=== PATIENT | female | born 1950 | race Caucasian/White ===

== ENCOUNTER 2024-11-02 05:44 | Outpatient (REF) | payer MEDICARE, SELFPAY ==
[2024-11-02 05:48] LABS: MANUAL DIFF FLAG NO
[2024-11-02 06:25] LABS: Basophils Percent Auto 0.3 % (0-2); Eosinophils Absolute Auto 0.1 X10*3/uL (0.0-0.4); Hematocrit 28.9 % (37.0-47.0); Hemoglobin 8.9 g/dl (12.0-16.0); Imm Gran Abs Auto 0.26 X10*3/uL (0.00-0.03); Imm Gran Pct Auto 2.5 % (0.0-0.4); Lymphocytes Absolute Auto 1.8 X10*3/uL (1.2-4.9); Lymphocytes Percent Auto 17.5 % (20-40); Mean Corpuscular HGB Conc 30.8 g/dl (31.0-35.0); Mean Corpuscular Hemoglobin 25.5 pg (27.0-33.0); Mean Corpuscular Volume 82.8 fL (80.0-98.0); Mean Platelet Volume 8.9 fL (9.4-12.3); Monocytes Absolute Auto 0.8 X10*3/uL (0.1-1.2); Monocytes Percent Auto 7.7 % (2-11); Neutrophils Absolute Auto 7.3 x10*3/uL (2.0-8.3); Platelet Count 360 X10*3/uL (160-400); Red Blood Count 3.49 X10*6/uL (4.20-5.50); Red Cell Distribution Width 20.3 % (11.0-16.0); White Blood Count 10.3 X10*3/uL (4.8-10.8)
[2024-11-02 06:33] LABS: Alanine Aminotransferase 24 U/L (0-31); Albumin Level 3.3 g/dL (3.5-5.0); Alkaline Phosphatase 80 U/L (39-117); Anion Gap 14 (12-20); Aspartate Amino Transferase 17 U/L (5-31); Bilirubin Total 0.4 mg/dL (0.0-1.0); Blood Urea Nitrogen 11 mg/dL (9-16); Carbon Dioxide 31 mmol/L (22-29); Chloride 101 mmol/L (96-108); Estimated Glomerular Filt Rate > 60; Glucose Random 99 mg/dL (60-115); Sodium 143 mmol/L (135-145); Total Protein 6.1 g/dL (6.5-8.0)
== END 2024-11-02 05:45 | disposition home or self-care (01) ==
LOC: HO.MMNH2L 05:44
PROVIDERS: Visit Provider Student in an Organized Health Care Education/Training Program
DX: J84.9 Interstitial pulmonary disease, unspecified (principal)
CPT/HCPCS: 36415; 80053; 85025

== ENCOUNTER 2024-11-09 05:46 | Outpatient (REF) | payer MEDICARE, SELFPAY ==
[2024-11-09 06:27] LABS: Hematocrit 29.2 % (37.0-47.0); Hemoglobin 8.6 g/dl (12.0-16.0); Mean Corpuscular HGB Conc 29.5 g/dl (31.0-35.0); Mean Corpuscular Hemoglobin 24.9 pg (27.0-33.0); Mean Corpuscular Volume 84.6 fL (80.0-98.0); Mean Platelet Volume 9.2 fL (9.4-12.3); NRBC Pct Auto 0.2 /100WBC (0.0-0.2); Platelet Count 493 X10*3/uL (160-400); Red Blood Count 3.45 X10*6/uL (4.20-5.50); Red Cell Distribution Width 20.3 % (11.0-16.0); White Blood Count 13.6 X10*3/uL (4.8-10.8)
[2024-11-09 06:36] LABS: Anion Gap 15 (12-20); Blood Urea Nitrogen 13 mg/dL (9-16); Calcium 8.9 mg/dL (8.4-10.2); Carbon Dioxide 33 mmol/L (22-29); Chloride 102 mmol/L (96-108); Estimated Glomerular Filt Rate > 60; Glucose Random 85 mg/dL (60-115); Potassium 3.2 mmol/L (3.3-5.1); Sodium 147 mmol/L (135-145)
[2024-11-09 08:10] LABS: Band Neutrophils Percent 1 % (3-5); Lymphocytes Absolute Manual 1.2 X10*3/uL (1.2-4.9); Lymphocytes Percent Manual 9 % (20-40); Metamyelocytes Absolute 0.4 X10*3/uL; Metamyelocytes Percent 3 %; Monocytes Absolute Manual 0.7 X10*3/uL (0.1-1.2); Monocytes Percent Manual 5 % (2-11); Myelocytes Absolute 0.3 X10*/uL; Myelocytes Percent 2 %; Neutrophils Percent Manual 80 % (45-73)
[2024-11-09 08:13] LABS: Ovalocytes 1+ (5-14) /OIF; Polychromasia 1+ (0-2) /OIF; RBC Morphology NOTED; Spherocytes 1+ (0-2) /OIF
[2024-11-09 08:14] LABS: Platelet Estimate INCREASED (NORMAL); Platelet Morphology Comment NORMAL
== END 2024-11-09 05:47 | disposition home or self-care (01) ==
LOC: HO.MMNH2L 05:46
PROVIDERS: Visit Provider Student in an Organized Health Care Education/Training Program
DX: J84.9 Interstitial pulmonary disease, unspecified (principal)
CPT/HCPCS: 36415; 80048; 85007; 85025; 85027

== ENCOUNTER 2024-11-12 05:42 | Outpatient (REF) | payer MEDICARE, SELFPAY ==
[2024-11-12 06:24] LABS: Potassium 2.8 mmol/L (3.3-5.1)
== END 2024-11-12 05:43 | disposition home or self-care (01) ==
LOC: HO.MMNH2L 05:42
PROVIDERS: Visit Provider Family Medicine
DX: G93.41 Metabolic encephalopathy (principal)
CPT/HCPCS: 36415; 84132

== ENCOUNTER 2024-11-13 06:02 | Outpatient (REF) | payer MEDICARE, SELFPAY ==
--- OUTSIDE RECORDS SUMMARY | 2024-11-13 06:07 | XMS_ITS | Continuity of Care Document ---
Author Organization [facility] Scarosso Cox [place], MARAL TJ Address [address] [place] [address] Care Team Providers Care Leacher Name Role Phone KENNETH GILMAR Primary Care Provider [phone] MARAL SPENCER 2ND FLOOR OTHER Assessment Encounter Date Assessment Date Assessment LastModified by Organization Details LastModified Time 11/11/2024 11/11/2024 Labs 11/02: Na 143- K 3.0-bun 11-cr 0.5-wbc 10.3-hgb 8.9-hct 28.9-plt 360 [email or web address] Not available 11/11/2024 11:34:03 Plan of Treatment Reminders Order Date Submit Date Provider Last Modified By Organization Details Last Modified Time Details Appointments None record ed. Lab None record ed. Referral None record ed. Procedures None record ed. Surgeries None record ed. Imaging None record ed. Medication Orders None record ed. Patient TargetsNo targets recorded. Patient InstructionsNo instructions recorded. Reason for Referral None Reported. Problems Name Problem SNOMED Code Status Onset Date Resolution Date Notes Provider Name and Address Organization Details Recorded Time Interstitial lung disease 508513141 Active 2024 Nabeel Munoz MD [address] , [address], [place], [address], [facility] 5 14:26:55 Chronic obstructive pulmonary disease 90552100 Active 2024 Nabeel Munoz MD [address] , [address], [place], [address], [facility] 5 14:27:01 Congestive heart failure 13617677 Active 2024 Nabeel Munoz MD [address] , [address], [place], [address], [facility] 5 14:27:11 Atrial fibrillation 57301227 Active 2024 Nabeel Munoz MD [address], [address], [place], [address], [facility] 5 14:27:33 Retention of urine 652207213 Active 2024 Nabeel Munoz MD [address], [address], [place], [address], [facility] 5 14:27:39 Essential hypertension 11990693 Active 2024 Nabeel Munoz MD [address], [address], [place], [address], [facility] 5 14:31:17 Mixed anxiety and depressive disorder 138825348 Active 2024 YANI BETANCUR [address], [address], [place], [address], [facility] 5 06:37:54 Problem Notes None recorded. Medical Equipment None Reported. Allergies Allergen ID Allergen Name Allergen Category Reaction Reaction Severity Criticality Documentation Date Start Date Code Code System Note Provider Name and Address Organization Details Recorded Time 60529 ampicilli n medicatio n Not available Not available Not available 11/03/2024 733 RxNorm Not Available Not Available Not Available 68833 budesonid e medicatio n Not available Not available Not available 11/03/2024 00415 RxNorm Not Available Not Available Not Available 39025 duloxetin e medicatio n Not available Not available Not available 11/03/2024 03132 RxNorm Not Available Not Available Not Available 08421 escitalop jarrod Not available Not available Not available Not available 11/03/2024 24460 8 RxNorm Not Available Not Available Not Available 46990 Levaquin medicatio n Not available Not available Not available 11/03/2024 73593 2 RxNorm Not Available Not Available Not Available 61900 Lovenox medicatio n Not available Not available Not available 11/03/2024 48945 6 RxNorm Not Available Not Available Not Available 80412 Substance with sulfonami de structure and antibacte rial mechanism of action (substanc e) medicatio n Not available Not available Not available 11/03/2024 95553 8003 SNOMED Not Available Not Available Not Available Medications Not known to be on any medication Vitals Date Recorded Body weight Heart rate Respiratory rate Body temperature Oxygen saturation Oxygen saturation in Arterial blood by Pulse oximetry Systolic blood pressure Diastolic blood pressure Provider Name and Address Organization Details Last Updated DateTime 5 51748.6 g 76 /min 18 /min 97.8 [degF] 94 % 94 % 121 mm[Hg] 68 mm[Hg] DANIELA BUNCH CNP [address] [facility], [address], [place], [address], [facility] 5 11:33:24 Social History Question Answer Notes LastModified by Organizat ion Details LastModified Time Tobacco Smoking Status Former Smoker quit around 1989 Nabeel Munoz MD [address] [facility], [address], [place], [address], [facility] 11/03/2024 14:39:28 Do You Have An Advance Directive? Yes Information not available 11/03/2024 What Is Your Level Of Alcohol Consumption? Occasional Information not available 11/03/2024 What Is Your Code Status? DNR/DNI Information not available 11/03/2024 Sex: Unknown Functional Status None recorded. Mental Status None recorded. Family History Nothing Reported Notes:N/C Medical History No medical history recorded. Gynecological HistoryNo gynecological history recorded. Obstetrics History GPAL:G 0 P 0 0 0 0 Immunizations Vaccine Type Date Status Note Provider Nam e and Address Organization Details Recorded Time Respiratory syncytial virus (RSV) MAB, unspecified 3 completed Mehrdad Giraldo [facility], [facility] 11/04/2024 09:33:24 Td(adult) unspecified formulation 1 completed Mehrdad zimmer [facility] 11/04/2024 09:33:36 Td(adult) unspecified formulation 5 completed Mehrdad Giraldo [facility], [facility] 11/04/2024 09:33:41 Td(adult) unspecified formulation 9 completed Mehrdad zimmer [facility] 11/04/2024 09:33:46 Pneumococcal conjugate PCV 13 5 completed Mehrdad Vinny-Baires null, [facility] 11/04/2024 09:33:59 pneumococcal polysaccharide PPV23 7 completed Mehrdad Vinny-Baires null, [facility] 11/04/2024 09:34:17 influenza, unspecified formulation 1 completed Mehrdad Vinny-Baires null, [facility] 11/04/2024 09:34:31 influenza, unspecified formulation 2 completed Mehrdad Vinny-Baires null, [facility] 11/04/2024 09:34:35 influenza, unspecified formulation 3 completed Mehrdad Nitos-Baires null, [facility] 11/04/2024 09:34:39 influenza, unspecified formulation 5 completed Mehrdad Nitos-Baires null, [facility] 11/04/2024 09:34:45 SARS-COV-2 (COVID-19) vaccine, UNSPECIFIED 1 completed Mehrdad Vinny-Baires null, [facility] 11/04/2024 09:34:56 SARS-COV-2 (COVID-19) vaccine, UNSPECIFIED 1 completed Mehrdad Nitomarita-Baires null, [facility] 11/04/2024 09:35:00 SARS-COV-2 (COVID-19) vaccine, UNSPECIFIED 1 [facility] 11/04/2024 09:35:05 SARS-COV-2 (COVID-19) vaccine, UNSPECIFIED 2 completed Mehrdad Vinny-Baires null, [facility] 11/04/2024 09:35:09 SARS-COV-2 (COVID-19) vaccine, UNSPECIFIED 2 completed Mehrdad Nitos-Baires null, [facility] 11/04/2024 09:35:14 SARS-COV-2 (COVID-19) vaccine, UNSPECIFIED 3 completed Mehrdad Vinny-Baires null, [facility] 11/04/2024 09:35:19 SARS-COV-2 (COVID-19) vaccine, UNSPECIFIED 3 completed Mehrdad Giraldo [facility], [facility] 11/04/2024 09:35:24 zoster, unspecified formulation 3 completed Mehrdad Giraldo [facility], [facility] 11/04/2024 09:35:38 zoster, unspecified formulation 9 completed Mehrdad Giraldo null, [facility] 11/04/2024 09:35:42 zoster, unspecified formulation 9 completed Mehrdad Giraldo [facility], [facility] 11/04/2024 09:35:48 Past Encounters Encounter ID Performer Location Encounter Start Date Encounter Closed Date Diagnosis/Indication Diagnosis SNOMED-CT Code Diagnosis ICD10 Code Diagnosis Note [id number] MD MARAL Conroy [address] [place] [address] PERCY FULLER [address] 11/03/2024 14:18:47 11/05/2024 11:41:09 Stercoral colitis 534763147 K52.89 improved with enemanow on bowel protocolmo nitor for effect Acute infe ctive cystitis 840367827 N30.00 UTI treated with course of cefepimemo nitor for recurrent infection Acute hyperkalemia 03477 00 E87.5 KCl 20 meq qdayrepeat bmpmonitor lytes Asthenia 15918933 R53.1 PT OT Eval and treatmonit or fall risk and need for increased support in community Interstiti al lung disease 622789275 J84.09 see above Chronic ob structive pulmonary disease 80122329 J44.1 recent hospitaliz ation for exacerbati oncontinue prednisone tapermonit or respirator y status and need to extendO2 at baseline Congestive heart failure 66354211 I50.23 treated with IV lasix in hospitalno w on lasix 20 mg qdmonitor respirator y and fluid status Atrial fibrillation 4943 6004 I48.0 eliquis 5 mg bidmonitor for rate controlon diltiazem Retention of urine 30901 4002 R33.8 [facility] Essential hypertension 53352412 I10 diltiazem 300 mg qdmonitor bp and need to titrate Primary insomnia 3706450 F51.01 melatonin 3 mg qhsmonitor for effect [id number] ERICA MCMILLAN, HEAD P[employer]ER TESTER [address] [address] 11/08/2024 10:51:09 11/12/2024 15:47:12 Stercoral colitis 102192771 K52.89 stableimpr farrukh with enemanow on bowel protocolmo nitor for effect Acute infe ctive cystitis 482838715 N30.00 stableUTI treated with course of cefepimemo nitor for recurrent infection Acute hyperkalemia 59217 00 E87.5 KCl 20 meq qdayrepeat bmpmonitor lytes Asthenia 74331756 R53.1 continue PT/OTmonit or fall risk and need for increased support in community Chronic ob structive pulmonary disease 14890397 J44.1 stablecont spiriva 18 mcg qdcont duoneb tx prncont prednisone taperO2 at baseline Congestive heart failure 35936111 I50.23 euvolemicc ont lasix 20 mg dailykcl 20 meq qdmonitor respirator y and fluid status Atrial fibrillation 4943 6004 I48.0 stablecont eliquis 5 mg bidmonitor for rate controlon diltiazem 300 mg Essential hypertension 34033944 I10 stabledilt iazem 300 mg qdmonitor bp and need to titrate Primary insomnia 2817246 F51.01 melatonin 3 mg qhsmonitor for effect Interstiti al lung disease 786925913 J84.09 cont atovaquone until 4/6cont mycophenol ate Mixed anxi ety and depressive disorder 814810238 F41.8 cont mirtazapin e, clonazepam , seroquelmo nitor mood [id number] DANIELA BUNCH, SHERYL [address] [address] 11/11/2024 10:09:50 11/12/2024 16:25:09 Stercoral colitis 687127023 K52.89 stableimpr farrukh with enemanow on bowel protocolmo nitor for effect Acute infe ctive cystitis 576326805 N30.00 stableUTI treated with course of cefepimemo nitor for recurrent infection Acute hyperkalemia 21728 00 E87.5 KCl 20 meq qdayrepeat bmpmonitor lytes Asthenia 23136143 R53.1 continue PT/OTmonit or fall risk and need for increased support in community Chronic ob structive pulmonary disease 04482685 J44.1 stablecont spiriva 18 mcg qdcont duoneb tx prncont prednisone taperO2 at baseline Congestive heart failure 84590835 I50.23 euvolemicc ont lasix 20 mg dailykcl 20 meq qdmonitor respirator y and fluid status Atrial fibrillation 4943 6004 I48.0 stablecont eliquis 5 mg bidmonitor for rate controlon diltiazem 300 mg Essential hypertension 06523618 I10 stabledilt iazem 300 mg qdmonitor bp and need to titrate Primary insomnia 7885646 F51.01 melatonin 3 mg qhsmonitor for effect Interstiti al lung disease 753848758 J84.09 cont atovaquone until 4/6cont mycophenol ate Mixed anxi ety and depressive disorder 163636445 F41.8 cont mirtazapin e, clonazepam , seroquelmo nitor mood Migraine without aura 56 971140 G43.009 Stable, and also is on prednisone therapy as above.Pt does not want medication for migraine at this time.Advis ed patient to try PRN tylenol.Wi ll continue monitor. Health Concerns Section Related Observation LastModified by Organization Detai ls LastModified Time None Recorded Concern Status LastModified by Organization Details LastModified Time None Recorded Payers Encounter Date Sequence Insurance Name Policy Number Policy Nair Covered Member ID Nair Member ID Guarantor Name 11/11/2024 2 [place] [id number] Mellissa Rubio [id number] Mellissa Rubio 11/11/2024 1 [place] [employer] Mellissa Rubio [id number] Melilssa Rubio Notes Date Note Type Note Provider Name and Address Organization Details Recorded Time 11/11/2024 text/html Patient is a 74 yo female admit from hospital after presenting with concern for mental status change and seizures after several recent hospitalizations for ILD and CHF exacerbations. On this admission dx with UTI and stercoral colitis. UTI treated with course of cefepime. Passed voiding trial in hospital. Noted recurrent CHF exacerbation improved with IV lasixOf note tsh noted mildly elevated. Constipation improved with enema and bowel protocol. For ILD exacerbation continue steroid taper, the end date will be 11/29/24. PMH significant for ILD, copd O2 dependent, chf, a fib on eliquis, urinary retentionadmit to facility for continued care and therapy. Upon assessment today, she is stable with baseline SOB oxygen dependent, VSS, denies any othe sx. Nursing requested for evaluation of headache. Pt reports she has chronic migraine, probably twice a week, it is manageable, does not want to use medication for that. Pt currently is on prednisone therapy, and no migraine reported today. PMH significant forILDcopd O2 dependentchfa fib on eliquisurinary retention DANIELA BUNCH, REBAR BENDER [address] [facility], [address], [place], [address], [facility] 11/11/2024 12:06:53 OBGyn Episode No OBEpisode recorded.
--- OUTSIDE RECORDS SUMMARY | 2024-11-13 06:07 | XMS_ITS | Continuity of Care Document ---
Author Organization [facility], MARAL TJ Address [address] [place] [address] Care Team Providers Care Netbackup Engineer Name Role Phone KENNETH GILMAR Primary Care Provider MARAL SPENCER 2ND FLOOR OTHER Assessment Encounter Date Assessment Date Assessment LastModified by Organization Details LastModified Time 11/08/2024 11/08/2024 Labs 11/02: Na 143- K 3.0-bun 11-cr 0.5-wbc 10.3-hgb 8.9-hct 28.9-plt 360 [id number] Not available 11/09/2024 06:45:39 Plan of Treatment Reminders Order Date Submit [...] Organization Details Recorded Time Interstitial lung disease 237721740 Active 2024 Nabeel Munoz MD [address] , [address], [place], [address], [facility] 5 14:26:55 Chronic obstructive pulmonary disease 50850104 Active 2024 Nabeel Munoz MD [address], [address], [place], [address], [facility] 5 14:27:01 Congestive heart failure 76199708 Active 2024 Nabeel Munoz MD [address] , [address], [place], [address], [facility] 5 14:27:11 Atrial fibrillation 28397120 Active 2024 Nabeel Munoz MD [address], [address], [place], [address], [facility] 5 14:27:33 Retention of urine 148866452 Active 2024 Nabeel Munoz MD [address], [address], [place], [address], [facility] 5 14:27:39 Essential hypertension 79451300 Active 2024 Nabeel Munoz MD [address], [address], [place], [address], [facility] 5 14:31:17 Mixed anxiety and depressive disorder 529996749 Active 2024 YANI BETANCUR [address], [address], [place], [address], [facility] 5 06:37:54 Problem Notes None recorded. Medical Equipment None Reported. Allergies Allergen ID Allergen Name Allergen Category Reaction Reaction Severity Criticality Documentation Date Start Date Code Code System Note Provider Name and Address Organization Details Recorded Time 23704 ampicilli n medicatio n Not available Not available Not available 11/03/2024 733 RxNorm Not Available Not Available Not Available 74504 budesonid e medicatio n Not available Not available Not available 11/03/2024 82705 RxNorm Not Available Not Available Not Available 40081 duloxetin e medicatio n Not available Not available Not available 11/03/2024 16587 RxNorm Not Available Not Available Not Available 68092 escitalop jarrod Not available Not available Not available Not available 11/03/2024 28858 8 RxNorm Not Available Not Available Not Available 11699 Levaquin medicatio n Not available Not available Not available 11/03/2024 77347 2 RxNorm Not Available Not Available Not Available 16239 Lovenox medicatio n Not available Not available Not available 11/03/2024 14995 6 RxNorm Not Available Not Available Not Available 61612 Substance with sulfonami de structure and antibacte rial mechanism of action (substanc e) medicatio n Not available Not available Not available 11/03/2024 13740 8003 SNOMED Not Available Not Available Not Available Medications Not known to be on any medication Vitals Date Recorded Heart rate Respiratory rate Body temperature Oxygen saturation Oxygen saturation in Arterial blood by Pulse oximetry Systolic blood pressure Diastolic blood pressure Provider Name and Address Organization Details Last Updated DateTime 5 77 /min 20 /min 97.9 [degF] 91 % 91 % 98 mm[Hg] 60 mm[Hg] YANI BETANCUR [address] [facility], [address], [place], [address], [facility] 5 00:54:03 Social History Question Answer Notes LastModified by Organizat ion Details LastModified Time Tobacco Smoking Status Former Smoker quit around 1989 Nabeel Munoz MD [address] [facility], [address], [place], [address], [facility] 11/03/2024 14:39:28 Do You Have An Advance Directive? Yes Information not available 11/03/2024 What Is Your Level Of Alcohol Consumption? Occasional Information not available 11/03/2024 What Is Your Code Status? DNR/DNI intz1 Information not available 11/03/2024 Sex: Unknown Functional [...] (RSV) MAB, unspecified 3 completed Mehrdad Giraldo [facility], [facility] 11/04/2024 09:33:24 Td(adult) unspecified formulation 1 completed Mehrdad Giraldo [facility] 11/04/2024 09:33:36 Td(adult) unspecified formulation 5 completed Mehrdad Giraldo [facility], [facility] 11/04/2024 09:33:41 Td(adult) unspecified formulation 9 completed Mehrdad zimmer, [facility] 11/04/2024 09:33:46 Pneumococcal conjugate PCV 13 5 completed Mehrdad Jacks-Baires null, [facility] 11/04/2024 09:33:59 pneumococcal polysaccharide PPV23 7 completed Mehrdad Jacks-Baires null, [facility] 11/04/2024 09:34:17 influenza, unspecified formulation 1 completed Mehrdad Jacks-Baires null, [facility] 11/04/2024 09:34:31 influenza, unspecified formulation 2 completed Mehrdad Jacks-Baires null, [facility] 11/04/2024 09:34:35 influenza, unspecified formulation 3 completed Mehrdad Jacks-Baires null, [facility] 11/04/2024 09:34:39 influenza, unspecified formulation 5 completed Mehrdad Jacks-Baires null, [facility] 11/04/2024 09:34:45 SARS-COV-2 (COVID-19) vaccine, UNSPECIFIED 1 completed Mehrdad Jacks-Baires null, [facility] 11/04/2024 09:34:56 SARS-COV-2 (COVID-19) vaccine, UNSPECIFIED 1 completed Mehrdad Jacks-Baires null, [facility] 11/04/2024 09:35:00 SARS-COV-2 (COVID-19) vaccine, UNSPECIFIED 1 completed Mehrdad Jacks-Baires null, [facility] 11/04/2024 09:35:05 SARS-COV-2 (COVID-19) vaccine, UNSPECIFIED 2 completed Mehrdad Jacks-Baires null, [facility] 11/04/2024 09:35:09 SARS-COV-2 (COVID-19) vaccine, UNSPECIFIED 2 completed Mehrdad Jacks-Baires null, [facility] 11/04/2024 09:35:14 SARS-COV-2 (COVID-19) vaccine, UNSPECIFIED 3 completed Mehrdad Jacks-Baires null, [facility] 11/04/2024 09:35:19 SARS-COV-2 (COVID-19) vaccine, UNSPECIFIED 3 completed Mehrdad Jacks-Baires null, [facility] 11/04/2024 09:35:24 zoster, unspecified formulation 3 completed Mehrdad Giraldo null, [facility] 11/04/2024 09:35:38 zoster, unspecified formulation 9 completed Mehrdad Giraldo null, [facility] 11/04/2024 09:35:42 zoster, unspecified formulation 9 completed Mehrdad Giraldo [facility], [facility] 11/04/2024 09:35:48 Past Encounters Encounter ID Performer Location Encounter Start Date Encounter Closed Date Diagnosis/Indication Diagnosis SNOMED-CT Code Diagnosis ICD10 Code Diagnosis Note [id number] MD MARAL Conroy [address] [place] [address] [place] [phone] 11/03/2024 14:18:47 11/05/2024 11:41:09 Stercoral colitis 121529437 K52.89 improved with enemanow on bowel protocolmo nitor for effect Acute infe ctive cystitis 037449669 N30.00 UTI treated with course of cefepimemo nitor for recurrent infection Acute hyperkalemia 54906 00 E87.5 KCl 20 meq qdayrepeat bmpmonitor lytes Asthenia 15526793 R53.1 PT OT Eval and treatmonit or fall risk and need for increased support in community Interstiti al lung disease 811174840 J84.09 see above Chronic ob structive pulmonary disease 67841191 J44.1 recent hospitaliz ation for exacerbati oncontinue prednisone tapermonit or respirator y status and need to extendO2 at baseline Congestive heart failure 19364954 I50.23 treated with IV lasix in hospitalno w on lasix 20 mg qdmonitor respirator y and fluid status Atrial fibrillation 4943 6004 I48.0 eliquis 5 mg bidmonitor for rate controlon diltiazem Retention of urine 12514 4002 R33.8 [facility] Essential hypertension 45901462 I10 diltiazem 300 mg qdmonitor bp and need to titrate Primary insomnia 9773976 F51.01 melatonin 3 mg qhsmonitor for effect [id number] YANI BETANCUR [address] [facility] [place] [id number] 11/08/2024 10:51:09 11/12/2024 15:47:12 Stercoral colitis 321869339 K52.89 stableimpr farrukh with enemanow on bowel protocolmo nitor for effect Acute infe ctive cystitis 194755715 N30.00 stableUTI treated with course of cefepimemo nitor for recurrent infection Acute hyperkalemia 42789 00 E87.5 KCl 20 meq qdayrepeat bmpmonitor lytes Asthenia 61803644 R53.1 continue PT/OTmonit or fall risk and need for increased support in community Chronic ob structive pulmonary disease 06764740 J44.1 stablecont spiriva 18 mcg qdcont duoneb tx prncont prednisone taperO2 at baseline Congestive heart failure 17955194 I50.23 euvolemicc ont lasix 20 mg dailykcl 20 meq qdmonitor respirator y and fluid status Atrial fibrillation 4943 6004 I48.0 stablecont eliquis 5 mg bidmonitor for rate controlon diltiazem 300 mg Essential hypertension 58971310 I10 stabledilt iazem 300 mg qdmonitor bp and need to titrate Primary insomnia 4478901 F51.01 melatonin 3 mg qhsmonitor for effect Interstiti al lung disease 883215852 J84.09 cont atovaquone until 4/6cont mycophenol ate Mixed anxi ety and depressive disorder 346310336 F41.8 cont mirtazapin e, clonazepam , seroquelmo nitor mood Health Concerns Section Related Observation LastModified by Organization Detai ls LastModified Time None Recorded Concern Status LastModified by Organization Details LastModified Time None Recorded Payers Encounter Date Sequence Insurance Name Policy Number Policy Nair Covered Member ID Nair Member ID Guarantor Name 11/08/2024 2 [place] [id number] Mellissa Rubio [id number] Mellissa Rubio 11/08/2024 1 [place] [employer] Mellissa Rubio [id number] Mellissa Rubio Notes Date Note Type Note Provider Name and Address Organization Details Recorded Time 11/08/2024 text/html Patient is a 74 yo female seen for acute rounding visit.She is here for rehab after recent acute care stay for ILD and CHF exacerbation. stable with baseline SOB oxygen dependent, noted with congested cough for a few days, denies any othe sx. PMH significant forILDcopd O2 dependentchfa fib on eliquisurinary retention YANI BETANCUR [address] [facility], [address], [place], [address], [facility] 11/09/2024 06:56:22 OBGyn Episode No OBEpisode recorded.
--- OUTSIDE RECORDS SUMMARY | 2024-11-13 06:07 | XMS_ITS | Clinical Summary ---
Author Organization [facility], Address [address] [place] [address] [place] [address] Phone Care Team Providers Care Tool Engineer Name Role Phone Unavailable Primary Care Provider Unavailabl e Social History Tobacco Use Types Packs/Day Years Used Date Smoking Tobacco: Never Assessed Comments Unknown Sex and Gender Information Value Date Recorded Sex Assigned at Not on file Legal Sex Female 8:41 AM EDT Gender Identity Not on file Sexual Orientation Not on file Plan of Treatment Health Maintenance Due Date Last Done Comments Influenza Vaccine (#1) 2024 9, 03/25/2019, 05/08/2018, Additional history exists Pneumococcal Vaccine: 65+ Years Completed 09/05/2016, 03/03/2015, 12/14/2011, Additional history exists Hepatitis B Vaccine Aged Out No longe r eligible based on patient's age to complete this topic Insurance MEDICARE [facility]
--- OUTSIDE RECORDS SUMMARY | 2024-11-13 06:07 | XMS_ITS | Clinical Summary ---
Author Organization [address] Address [address] [place] [address] Care Team Providers Care Calibration Tester Name Role Phone Suhas Merchant MD Primary Care Provider [phone] Allergies Active Allergy Reactions Criticality Noted Date Comments Ciprofloxacin Intolerance 05/13/2020 Duloxetine Mental Status Change 06/12/2017 Levofloxacin Intolerance 05/13/2020 Penicillins Angioedema 05/13/2020 Sulfamethoxazole Angioedema 05/13/2020 Medications albuterol (PROVENTIL, VENTOLIN) 2.5 mg /3 mL (0.083 %) nebulizer solutionIndicat ions:acute asthma attack,bronchos pasm prevention Take 3 mLs by nebulization every 6 (six) hours as needed for shortness of breath. Active ALPRAZolam (XANAX) 1 mg tabletIndicatio ns:anxiety Take 1 mg by mouth 2 (two) times daily as needed for anxiety. .5 tab Active apixaban (ELIQUIS) 5 mg tablet Take 1 tablet by mouth 2 (two) times daily. Active dilTIAZem CD (CARDIZEM CD) 360 mg 24 hr capsule Take 360 mg by mouth daily. Active FLUoxetine 20 mg tablet Take 20 mg by mouth daily. Active fluticasone furoate-vilante roL (BREO ELLIPTA) 200-25 mcg/dose blister powder for inhalation Inhale 1 puff into the lungs daily. Active furosemide (LASIX) 40 mg tablet Take 40 mg by mouth 2 (two) times daily. Take 1 tab in am, .5 tab in pm Active gabapentin (NEURONTIN) 300 mg capsuleIndicati ons:neuropathic pain Take 300 mg by mouth at bedtime. 3 tabs Active latanoprost (XALATAN) 0.005 % ophthalmic solution Place 1 drop into both eyes nightly. Active lipase-protease -amylase (CREON-6) 6,000-19,000 -30,000 unit per delayed release capsule Take by mouth 3 (three) times daily with meals. Active losartan (COZAAR) 100 mg tablet Take 100 mg by mouth daily. Active magnesium oxide (MAG-OX) 400 mg (241.3 mg magnesium) tablet Take 1 tablet by mouth daily. Active montelukast (SINGULAIR) 10 mg tablet Take 10 mg by mouth nightly. Active omeprazole (PRILOSEC) 20 mg capsule Take 20 mg by mouth daily. Active oxyCODONE (OXY-IR) 5 mg capsule Take 5 mg by mouth every 6 (six) hours as needed. .5 tab Active potassium chloride SA (K-DUR,KLOR-CON M) 20 MEQ 24 hr tablet Take 20 mEq by mouth daily. Swallow whole; do not break, crush, or chew. Active pravastatin (PRAVACHOL) 40 mg tablet Take 40 mg by mouth daily. Active zolpidem CR (AMBIEN CR) 12.5 mg 24 hr tablet Take 12.5 mg by mouth nightly as needed for sleep. Active Active Problems No known active problems Immunizations Name Administration Dates Next Due Influenza, quad, adjuvanted, 0.5mL, preservative free 04/29/2020 Family History Medical History Relation Name Comments Heart attack Father Heart disease Mother Rheumatic fever Mother Relation Name Status Comments Father Mother Social History Tobacco Use Types Packs/Day Years Used Date Smoking Tobacco: Former Cigarettes Q uit: 1992 Smokeless Tobacco: Never Alcohol Use Standard Drinks/Week Comments Yes 5 (1 standard drink = 0.6 oz pur e alcohol) Comments No Sex and Gender Information Value Date Recorded Sex Assigned at Not on file Legal Sex Female 11:40 AM EDT Gender Identity Not on file Sexual Orientation Not on file Last Filed Vital Signs Vital Sign Reading Time Taken Comments Blood Pressure 121/55 05/17/2020 6:45 PM EDT Pulse 85 05/17/2020 6:45 PM EDT Temperature 37 ??C (98.6 ??F) 05/17/2020 6:32 PM EDT Respiratory Rate 15 05/17/2020 6:45 PM EDT Oxygen Saturation 95% 05/17/2020 6:45 PM EDT Inhaled Oxygen Concentration - - Weight 75.4 kg (166 lb 3.6 oz) 05/17/2020 2:27 P M EDT Height 154.9 cm (5' 1 ) 05/13/2020 10:48 AM EDT Body Mass Index 31.41 05/13/2020 10:48 AM EDT Plan of Treatment Health Maintenance Due Date Last Done Comments HIV screening 1961 Hepatitis C screening 1966 Tetanus adult (Td q 10,TDAP once) 1968 Lipid disorder screening 1988 Colon cancer screening, Colonoscopy 1993 Diabetes screening 1993 Shingles vaccine (Shingrix) (1 of 2 - Shingrix (RZV) 2 Dose Standard Series) 1998 Osteoporosis screening (bone density) 2013 Pneumococcal Vaccine (50+ ye ars) (1 of 1 - PCV) 2013 RSV Immunization (1 - 1-dose 75+ series) 2023 Influenza vaccine 03/12/2024 04/29/2020 Covid-19 vaccine series ( - 2023- season) 2024 Breast cancer screening Discontinued Cervical cancer screening Discontinued Meningococcal Vaccine Aged Out No justin kanwal eligible based on patient's age to complete this topic Insurance MEDICARE [facility] MEDICARE [facility] MEDICARE BCBS Care Teams Calibration Tester Relationship Specialty Start Date End Date Suhas Merchant MD PCP - General 05/06/20
--- OUTSIDE RECORDS SUMMARY | 2024-11-13 06:07 | XMS_ITS | Clinical Summary ---
Author Organization [employer] Address [address] [place] [address] 7 [place] [address] Care Team Providers Care Ship Mate Name Role Phone Gabriella Elizabeth MD Unavailable [phone] Allergies Active Allergy Reactions Criticality Noted Date Comments Duloxetine Hcl Unknown 09/12/2022 Enoxaparin 06/12/2017 Levofloxacin Unknown 09/12/2022 Penicillins Angioedema 06/12/2017 Sulfa Antibiotics 06/12/2017 Medications BIOTIN EXTRA STRENGTH PO Biotin Extra Strength Active Multiple Vitamin (Multi Vitamin) tablet 1 tablet in the morning. Active cycloSPORINE (Restasis) 0.05 % ophthalmic emulsion 1 drop in the morning and 1 drop in the evening. Active apixaban (Eliquis) 5 MG tablet as directed Orally Active losartan (Cozaar) 100 MG tablet 1 tablet in the morning. Active omeprazole (PriLOSEC) [address] capsule daily. Active pravastatin (Pravachol) 40 MG tablet 1 tablet in the morning. Active amitriptyline (Elavil) 10 MG tablet 1 tablet at bedtime. Active FLUoxetine (PROzac) 20 MG capsule 1 capsule in the morning. Active Flaxseed Oil oil Flaxseed Oil Active gabapentin (Neurontin) 300 MG capsule 1 capsule in the morning. Active zolpidem (Ambien) 10 MG tablet 1 tablet at bedtime. Active montelukast (Singulair) 10 MG tablet 1 tablet in the morning. Active latanoprost (Xalatan) 0.005 % ophthalmic solution Administer 1 drop into both eyes at bedtime. 2 Active diazePAM (Valium) 5 MG tablet 3 Active diazePAM (Valium) 2 MG tablet 3 Active Trelegy Ellipta 200-62.5-25 MCG/ACT aerosol powder 2 Active SUMAtriptan (Imitrex) 25 MG tablet 2 Active predniSONE (Deltasone) 10 MG tablet TAKE 4 TABLETS BY MOUTH DAILY X3DAYS 3 TABLETS DAILY X5DAYS 2 TABLETS DAILY X5DAYS 1 TABLET DAILY X3DAYS 3 Active oxyCODONE (Oxy-IR) 5 MG immediate release capsule Take 5 mg by mouth every 6 (six) hours if needed. Active albuterol 108 (90 Base) MCG/ACT inhaler Inhale. 1 Active furosemide (Lasix) 40 MG tablet 2 Active KLOR-CON 20 MEQ ER tablet 2 Active Active Problems Problem Noted Date Diagnosed Date Primary open angle glaucoma (POAG) of both eyes, mild stage 09/12/2022 Keratitis sicca, bilateral 09/12/2022 Social History Tobacco Use Types Packs/Day Years Used Date Smoking Tobacco: Former Cigarettes Tobacco Cessation:Counseling Given: Not Answered Comments Unknown Sex and Gender Information Value Date Recorded Sex Assigned at Female 09/13/2022 4:01 PM EST Legal Sex Female 8:36 PM EDT Gender Identity Female 09/13/2022 4:01 PM EST Sexual Orientation Choose not to disclose 2022 4:01 PM EST Last Filed Vital Signs Vital Sign Reading Time Taken Comments Blood Pressure 108/62 09/27/2021 10:00 AM EST Pulse - - Temperature - - Respiratory Rate - - Oxygen Saturation - - Inhaled Oxygen Concentration - - Weight - - Height - - Body Mass Index - - Plan of Treatment Health Maintenance Due Date Last Done Comments Depression Screening 1948 Lipid Panel 1948 SDOH Screening 1948 Alcohol/Substance Use Screening 1960 Tobacco Screening 1960 Hepatitis C Screening 1966 RSV Patients and Patients Aged 60 years or older (1 - 1-dose 75+ series) 2023 COVID-19 Vaccine ( season) 2024 06/07/2023, 03/30/2023, 06/28/2022, Additional history exists Influenza Vaccine (#1) 2024 3, 06/13/2022, 06/13/2022, Additional history exists DTaP/Tdap/Td Vaccines (3 - Td or Tdap) 02/27/2029 02/27/2019, 02/24/2015, 02/27/2011, Additional history exists Pneumococcal Vaccine: 50+ Years Completed 09/05/2016, 03/03/2015, 12/14/2011, Additional history exists Zoster Vaccines Completed 03/30/2019, 12/11, 11/18/2012 HIB Vaccines Aged Out No longer eligi ble based on patient's age to complete this topic HPV Vaccines Aged Out No longer eligi ble based on patient's age to complete this topic Hepatitis A Vaccines Aged Out No long er eligible based on patient's age to complete this topic Hepatitis B Vaccines Aged Out No long er eligible based on patient's age to complete this topic IPV Vaccines Aged Out No longer eligi ble based on patient's age to complete this topic Meningococcal Vaccine Aged Out No justin kanwal eligible based on patient's age to complete this topic RSV under 20 months Aged Out No longe r eligible based on patient's age to complete this topic Rotavirus Vaccines Aged Out No longer eligible based on patient's age to complete [place] [id number] [facility] Care Teams Ship Mate Relationship Specialty Start Date End Date Gabriella Elizabeth MD [address] [place] [phone] Ophthalmology 10/18/22
[2024-11-13 07:02] LABS: Anion Gap 14 (12-20); Blood Urea Nitrogen 14 mg/dL (9-16); Calcium 8.9 mg/dL (8.4-10.2); Carbon Dioxide 30 mmol/L (22-29); Chloride 102 mmol/L (96-108); Estimated Glomerular Filt Rate > 60; Glucose Random 77 mg/dL (60-115); Potassium 3.4 mmol/L (3.3-5.1); Sodium 143 mmol/L (135-145)
== END 2024-11-13 06:03 | disposition home or self-care (01) ==
LOC: HO.MMNH2L 06:02
PROVIDERS: Visit Provider Family Medicine
DX: E87.6 Hypokalemia (principal)
CPT/HCPCS: 36415; 80048

== ENCOUNTER 2024-11-16 05:49 | Outpatient (REF) | payer MEDICARE, SELFPAY ==
[2024-11-16 05:41] LABS: MANUAL DIFF FLAG NO
--- OUTSIDE RECORDS SUMMARY | 2024-11-16 06:02 | XMS_ITS | Clinical Summary ---
Author Organization [employer] Address [address] [place] [address] [address] [place] [address] Care Team Providers Care Charter Driver Name Role Phone Gabriella Elizabeth MD Unavailable [phone] Allergies Active Allergy Reactions Criticality Noted [...] age to complete this topic Insurance [place] [address] [place] [id number] [facility] Care Teams Charter Driver Relationship Specialty Start Date End Date Gabriella Elizabeth MD [address] [place] [id number] Ophthalmology 10/18/22
--- OUTSIDE RECORDS SUMMARY | 2024-11-16 06:02 | XMS_ITS | Continuity of Care Document ---
Author Organization [facility], MARAL TJ Address [address] [place] [address] Care Team Providers Care Evaluation Manager Name Role Phone KENNETH GILMAR Primary Care Provider [phone] MARAL SPENCER 2ND FLOOR OTHER Assessment Encounter [...] Organization Details Recorded Time Interstitial lung disease 382046408 Active 2024 Nabeel Munoz MD [address] , [address], [place], [address], [facility] [employer] 5 14:26:55 Chronic obstructive pulmonary disease 61521221 Active 2024 Nabeel Munoz MD [address] , [address], [place], [address], [facility] [employer] 5 14:27:01 Congestive heart failure 56600694 Active 2024 Nabeel Munoz MD [address] , [address], [place], [address], [facility] [employer] 5 14:27:11 Atrial fibrillation 54057617 Active 2024 Nabeel Munoz MD [address], [address], [place], [address], [employer] 5 14:27:33 Retention of urine 770559568 Active 2024 Nabeel Munoz MD [address], [address], [place], [address], [facility] 5 14:27:39 Essential hypertension 21651945 Active 2024 Nabeel Munoz MD [address], [address], [place], [address], [facility] 5 14:31:17 Mixed anxiety and depressive disorder 286301907 Active 2024 YANI BETANCUR [address], [address], [place], [address], [employer] 5 06:37:54 Problem Notes None recorded. Medical Equipment None Reported. Allergies Allergen ID Allergen Name Allergen Category Reaction Reaction Severity Criticality Documentation Date Start Date Code Code System Note Provider Name and Address Organization Details Recorded Time 39030 ampicilli n medicatio n Not available Not available Not available 11/03/2024 733 RxNorm Not Available Not Available Not Available 33387 budesonid e medicatio n Not available Not available Not available 11/03/2024 48713 RxNorm Not Available Not Available Not Available 58680 duloxetin e medicatio n Not available Not available Not available 11/03/2024 73745 RxNorm Not Available Not Available Not Available 40185 escitalop jarrod Not available Not available Not available Not available 11/03/2024 93776 8 RxNorm Not Available Not Available Not Available 54944 Levaquin medicatio n Not available Not available Not available 11/03/2024 94525 2 RxNorm Not Available Not Available Not Available 11075 Lovenox medicatio n Not available Not available Not available 11/03/2024 77773 6 RxNorm Not Available Not Available Not Available 67740 Substance with sulfonami de structure and antibacte rial mechanism of action (substanc e) medicatio n Not available Not available Not available 11/03/2024 96789 8003 SNOMED Not Available Not Available Not Available Medications Not known to be on any medication Vitals Date Recorded Body weight Heart rate Respiratory rate Body temperature Oxygen saturation Oxygen saturation in Arterial blood by Pulse oximetry Systolic blood pressure Diastolic blood pressure Provider Name and Address Organization Details Last Updated DateTime 5 90908.6 g 76 /min 18 /min 97.8 [degF] 94 % 94 % 121 mm[Hg] 68 mm[Hg] DANIELA BUNCH CNP [address] [facility], [address], [place], [address], [facility] [employer] 5 11:33:24 Social History Question Answer Notes LastModified by Organizat ion Details LastModified Time Tobacco Smoking Status Former Smoker quit around 1989 Nabeel Munoz MD [address] [facility], [address], [place], [address], [facility] [employer] 11/03/2024 14:39:28 Do You Have An Advance [...] (RSV) MAB, unspecified 3 completed Mehrdad Giraldo [facility], [facility] 11/04/2024 09:33:24 Td(adult) unspecified formulation 1 completed Mehrdad zimmer [facility] 11/04/2024 09:33:36 Td(adult) unspecified formulation 5 completed Mehrdad Giraldo [facility], [facility] 11/04/2024 09:33:41 Td(adult) unspecified formulation 9 completed Mehrdad zimmer [facility] 11/04/2024 09:33:46 Pneumococcal conjugate PCV 13 5 completed Mehrdad Vinny-Baires null, [facility] 11/04/2024 09:33:59 pneumococcal polysaccharide PPV23 7 completed Mehrdad Vinny-Baires null, [facility] 11/04/2024 09:34:17 influenza, unspecified formulation 1 completed Mehrdad Vinny-Baires null, [facility] 11/04/2024 09:34:31 influenza, unspecified formulation 2 completed Mehrdad Vinny-Baires null, [facility] 11/04/2024 09:34:35 influenza, unspecified formulation 3 completed Mehrdad Nitos-Baires null, [facility] 11/04/2024 09:34:39 influenza, unspecified formulation 5 completed Mehrdad Nitos-Baires null, [facility] 11/04/2024 09:34:45 SARS-COV-2 (COVID-19) vaccine, UNSPECIFIED 1 completed Mehrdad Vinny-Baires null, [facility] 11/04/2024 09:34:56 SARS-COV-2 (COVID-19) vaccine, UNSPECIFIED 1 completed Mehrdad Nitomarita-Baires null, [facility] 11/04/2024 09:35:00 SARS-COV-2 (COVID-19) vaccine, UNSPECIFIED 1 completed [facility] 09:35:05 SARS-COV-2 (COVID-19) vaccine, UNSPECIFIED 2 completed Mehrdad Vinny-Baires null, [facility] 11/04/2024 09:35:09 SARS-COV-2 (COVID-19) vaccine, UNSPECIFIED 2 completed Mehrdad Nitos-Baires null, [facility] 11/04/2024 09:35:14 SARS-COV-2 (COVID-19) vaccine, UNSPECIFIED 3 completed Mehrdad Vinny-Baires null, [facility] 11/04/2024 09:35:19 SARS-COV-2 (COVID-19) vaccine, UNSPECIFIED 3 completed Mehrdad Giraldo [facility], [facility] 11/04/2024 09:35:24 zoster, unspecified formulation 3 completed Mehrdad Giraldo [facility], [facility] 11/04/2024 09:35:38 zoster, unspecified formulation 9 completed Mehrdad Giraldo null, [facility] 11/04/2024 09:35:42 zoster, unspecified formulation 9 completed Mehrdad Giraldo [facility], [facility] 11/04/2024 09:35:48 Past Encounters Encounter ID Performer Location Encounter Start Date Encounter Closed Date Diagnosis/Indication Diagnosis SNOMED-CT Code Diagnosis ICD10 Code Diagnosis Note [id number] MD MARAL Conroy [address] [place] [address] PERCY FULLER [phone] 11/03/2024 14:18:47 11/05/2024 11:41:09 Stercoral colitis 364489112 K52.89 improved with enemanow on bowel protocolmo nitor for effect Acute infe ctive cystitis 294427514 N30.00 UTI treated with course of cefepimemo nitor for recurrent infection Acute hyperkalemia 44667 00 E87.5 KCl 20 meq qdayrepeat bmpmonitor lytes Asthenia 33497484 R53.1 PT OT Eval and treatmonit or fall risk and need for increased support in community Interstiti al lung disease 375045503 J84.09 see above Chronic ob structive pulmonary disease 87847784 J44.1 recent hospitaliz ation for exacerbati oncontinue prednisone tapermonit or respirator y status and need to extendO2 at baseline Congestive heart failure 53406182 I50.23 treated with IV lasix in hospitalno w on lasix 20 mg qdmonitor respirator y and fluid status Atrial fibrillation 4943 6004 I48.0 eliquis 5 mg bidmonitor for rate controlon diltiazem Retention of urine 00944 4002 R33.8 [facility] Essential hypertension 05939737 I10 diltiazem 300 mg qdmonitor bp and need to titrate Primary insomnia 9278055 F51.01 melatonin 3 mg qhsmonitor for effect [id number] ERICA MCMILLAN, NITRO MAN [address] [address] 11/08/2024 10:51:09 11/12/2024 15:47:12 Stercoral colitis 315890922 K52.89 stableimpr farrukh with enemanow on bowel protocolmo nitor for effect Acute infe ctive cystitis 667948230 N30.00 stableUTI treated with course of cefepimemo nitor for recurrent infection Acute hyperkalemia 35438 00 E87.5 KCl 20 meq qdayrepeat bmpmonitor lytes Asthenia 70250463 R53.1 continue PT/OTmonit or fall risk and need for increased support in community Chronic ob structive pulmonary disease 86995827 J44.1 stablecont spiriva 18 mcg qdcont duoneb tx prncont prednisone taperO2 at baseline Congestive heart failure 19532629 I50.23 euvolemicc ont lasix 20 mg dailykcl 20 meq qdmonitor respirator y and fluid status Atrial fibrillation 4943 6004 I48.0 stablecont eliquis 5 mg bidmonitor for rate controlon diltiazem 300 mg Essential hypertension 30528555 I10 stabledilt iazem 300 mg qdmonitor bp and need to titrate Primary insomnia 2152439 F51.01 melatonin 3 mg qhsmonitor for effect Interstiti al lung disease 018345800 J84.09 cont atovaquone until 4/6cont mycophenol ate Mixed anxi ety and depressive disorder 482249626 F41.8 cont mirtazapin e, clonazepam , seroquelmo nitor mood [id number] DANIELA BUNCH, SHERYL [address] [address] 11/11/2024 10:09:50 11/12/2024 16:25:09 Stercoral colitis 938716018 K52.89 stableimpr farrukh with enemanow on bowel protocolmo nitor for effect Acute infe ctive cystitis 486863849 N30.00 stableUTI treated with course of cefepimemo nitor for recurrent infection Acute hyperkalemia 10566 00 E87.5 KCl 20 meq qdayrepeat bmpmonitor lytes Asthenia 65204155 R53.1 continue PT/OTmonit or fall risk and need for increased support in community Chronic ob structive pulmonary disease 66095121 J44.1 stablecont spiriva 18 mcg qdcont duoneb tx prncont prednisone taperO2 at baseline Congestive heart failure 15934881 I50.23 euvolemicc ont lasix 20 mg dailykcl 20 meq qdmonitor respirator y and fluid status Atrial fibrillation 4943 6004 I48.0 stablecont eliquis 5 mg bidmonitor for rate controlon diltiazem 300 mg Essential hypertension 46042439 I10 stabledilt iazem 300 mg qdmonitor bp and need to titrate Primary insomnia 0206792 F51.01 melatonin 3 mg qhsmonitor for effect Interstiti al lung disease 854107255 J84.09 cont atovaquone until 4/6cont mycophenol ate Mixed anxi ety and depressive disorder 293292406 F41.8 cont mirtazapin e, clonazepam , seroquelmo nitor mood Migraine without aura 56 452826 G43.009 Stable, and also is on prednisone [...] Name 11/11/2024 2 [place] [id number] Mellissa Rubio [id number] Mellissa Rubio 11/11/2024 1 [place] [employer] Mellissa Rubio [id number] Mellissa Rubio Notes Date Note Type [...] dependentchfa fib on eliquisurinary retention DANIELA BUNCH, [employer] [address] [facility], [address], [place], [address], [facility] - [employer] 11/11/2024 12:06:53 OBGyn Episode No OBEpisode recorded.
--- OUTSIDE RECORDS SUMMARY | 2024-11-16 06:02 | XMS_ITS | Clinical Summary ---
Author Organization [facility], Address [address] [place] [address] [place] [address] Phone Care Team Providers Care Box Brander Name Role Phone Unavailable Primary Care Provider [...] Due Date Last Done Comments Influenza Vaccine (Season Ended) 2025 03/30/2019, 03/25/2019, 05/08/2018, Additional history exists Pneumococcal Vaccine: 65+ Years Completed 09/05/2016, 03/03/2015, 12/14/2011, Additional history exists Hepatitis B Vaccine Aged Out No longe r eligible based on patient's age to complete this topic Insurance MEDICARE [facility]
--- OUTSIDE RECORDS SUMMARY | 2024-11-16 06:02 | XMS_ITS | Data Portability ---
Author Organization [facility] [employer] [facility], Main Office Address [address] [facility] [facility] [address] [address] [place] [address] Care Team Providers Care Lead Handler Name Role Phone KENNETHGILMAR Primary Care Provider [phone] MARAL SPENCER 2ND FLOOR OTHER Assessment Encounter Date Assessment Date Assessment LastModified by Organization Details LastModified Time 11/08/2024 11/08/2024 Labs 11/02: Na 143- K 3.0-bun 11-cr 0.5-wbc 10.3-hgb 8.9-hct 28.9-plt 360 [id number] Not available 11/09/2024 06:45:39 11/11/2024 11/11/2024 Labs 11/02: Na 143- K [...] Organization Details Recorded Time Interstitial lung disease 411638164 Active 2024 Nabeel Munoz MD [address] , [address], [place], [address], [employer] 14:26:55 Chronic obstructive pulmonary disease 67901593 Active 2024 Nabeel Munoz MD [address] , [address], [place], [address], [facility] 14:27:01 Congestive heart failure 77439020 Active 2024 Nabeel Munoz MD [address], [address], [place], [address], [facility] 14:27:11 Atrial fibrillation 32278778 Active 2024 Nabeel Munoz MD [address], [address], [place], [address], [facility] 14:27:33 Retention of urine 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, [address], [place], [address], [facility] 14:31:17 Mixed anxiety and depressive disorder 246824069 Active 2024 YANI BETANCUR [address] [facility], [address], [place], [address], [facility] 06:37:54 Problem Notes None recorded. Medical Equipment None Reported. Allergies Allergen ID Allergen Name Allergen Category Reaction Reaction Severity Criticality Documentation Date Start Date Code Code System Note Provider Name and Address Organization Details Recorded Time 62086 ampicilli n medicatio n Not available Not available Not available 11/03/2024 733 RxNorm Not Available Not Available Not Available 71958 budesonid e medicatio n Not available Not available Not available 11/03/2024 45466 RxNorm Not Available Not Available Not Available 64720 duloxetin e medicatio n Not available Not available Not available 11/03/2024 22384 RxNorm Not Available Not Available Not Available 37100 escitalop jarrod Not available Not available Not available Not available 11/03/2024 31545 8 RxNorm Not Available Not Available Not Available 36775 Levaquin medicatio n Not available Not available Not available 11/03/2024 03781 2 RxNorm Not Available Not Available Not Available 22319 Lovenox medicatio n Not available Not available Not available 11/03/2024 36594 6 RxNorm Not Available Not Available Not Available 89281 Substance with sulfonami de structure and antibacte rial mechanism of action (substanc e) medicatio n Not available Not available Not available 11/03/2024 94507 8003 SNOMED Not Available Not Available Not Available Medications Not known to be on any medication Vitals Date Recorded Body weight Heart rate Respiratory rate Systolic blood pressure Diastolic blood pressure Provider Name and Address Organization Details Last Updated DateTime 11/03/2024 75939.2 3 g 90 /min 18 /min 110 mm[Hg] 50 mm[Hg] Nabeel Munoz MD [address] [facility], [address], [place], [address], [facility] 5 14:19:19 Date Recorded Heart rate Respiratory rate Body temperature Oxygen saturation Oxygen saturation in Arterial blood by Pulse oximetry Systolic blood pressure Diastolic blood pressure Provider Name and Address Organization Details Last Updated DateTime 5 77 /min 20 /min 97.9 [degF] 91 % 91 % 98 mm[Hg] 60 mm[Hg] YANI BETANCUR [address] [facility], [address], [place], [address], [facility] 00:54:03 Date Recorded Body weight Heart rate Respiratory rate Body temperature Oxygen saturation Oxygen saturation in Arterial blood by Pulse oximetry Systolic blood pressure Diastolic blood pressure Provider Name and Address Organization Details Last Updated DateTime 5 80452.6 g 76 /min 18 /min 97.8 [degF] 94 % 94 % 121 mm[Hg] 68 mm[Hg] DANIELA BUNCH CNP [address] [facility], [address], [place], [address], [facility] 5 11:33:24 Social History Question Answer Notes LastModified by Organizat ion Details LastModified Time Tobacco Smoking Status Former Smoker quit around 1989 Nabeel Munoz MD [address] [facility], [address], [place], [address], [facility] 11/03/2024 14:39:28 Do You Have An Advance Directive? Yes Information not available 11/03/2024 What Is Your Level Of Alcohol Consumption? Occasional Information not available 11/03/2024 What Is Your Code Status? DNR/DNI [place] [address] Information not available 11/03/2024 Sex: Unknown Functional Status None recorded. Mental Status None recorded. Family History Nothing Reported Notes:N/C Medical History No medical history recorded. Gynecological HistoryNo gynecological history recorded. Obstetrics History GPAL:G 0 P 0 0 0 0 Immunizations Vaccine Type Date Status Note Provider Nam e and Address Organization Details Recorded Time Respiratory syncytial virus (RSV) MAB, unspecified 3 completed Mehrdad Vinny-Baires [facility] 11/04/2024 09:33:24 Td(adult) unspecified formulation 1 completed Mehrdad Giraldo [facility] 11/04/2024 09:33:36 Td(adult) unspecified formulation 5 completed Mehrdad Casillas-Baires [facility] 11/04/2024 09:33:41 Td(adult) unspecified formulation 9 completed Mehrdad Vinny-Baires [facility] 11/04/2024 09:33:46 Pneumococcal conjugate PCV 13 5 completed Mehrdad Casillas-Baires [facility] 11/04/2024 09:33:59 pneumococcal polysaccharide PPV23 7 completed Mehrdad Casillas-Baires [facility] 11/04/2024 09:34:17 influenza, unspecified formulation 1 completed Mehrdad Casillas-Baires [facility] 11/04/2024 09:34:31 influenza, unspecified formulation 2 completed Mehrdad Casillas-Baires [facility] 11/04/2024 09:34:35 influenza, unspecified formulation 3 completed Mehrdad Casillas-Baires [facility] 11/04/2024 09:34:39 influenza, unspecified formulation 5 completed Mehrdad Casillas-Baires [facility] 11/04/2024 09:34:45 SARS-COV-2 (COVID-19) vaccine, UNSPECIFIED 1 completed Mehrdad Beauchamps-Baires null, [facility] 11/04/2024 09:34:56 SARS-COV-2 (COVID-19) vaccine, UNSPECIFIED 1 completed Mehrdad Jacks-Baires null, [facility] 11/04/2024 09:35:00 SARS-COV-2 (COVID-19) vaccine, UNSPECIFIED 1 completed Mehrdad Jacks-Baires null, [facility] 11/04/2024 09:35:05 SARS-COV-2 (COVID-19) vaccine, UNSPECIFIED 2 completed Mehrdad Jacks-Baires null, [facility] 11/04/2024 09:35:09 SARS-COV-2 (COVID-19) vaccine, UNSPECIFIED 2 completed [facility] 09:35:14 SARS-COV-2 (COVID-19) vaccine, UNSPECIFIED 3 completed [facility]/04/[facility]24 09:35:19 SARS-COV-2 (COVID-19) vaccine, UNSPECIFIED 3 completed Mehrdad Jacks-Baires [facility] 11/04/2024 09:35:24 zoster, unspecified formulation 3 completed [facility] 11/04/2024 09:35:38 zoster, unspecified formulation 9 completed Mehrdad Jacks-Baires [facility] 11/04/2024 09:35:42 zoster, unspecified formulation 9 completed Mehrdad Jacks-Baires null, [facility] 11/04/2024 09:35:48 Past Encounters Encounter ID Performer Location Encounter Start Date Encounter Closed Date Diagnosis/Indication Diagnosis SNOMED-CT Code Diagnosis ICD10 Code Diagnosis Note [id number] Nabeel Munoz MD [address] [place] [address] 11/03/2024 14:18:47 11/05/2024 11:41:09 Stercoral colitis 892908854 K52.89 improved with enemanow on bowel protocolmo nitor for effect Acute infe ctive cystitis 206477674 N30.00 UTI treated with course of cefepimemo nitor for recurrent infection Acute hyperkalemia 43471 00 E87.5 KCl 20 meq qdayrepeat bmpmonitor lytes Asthenia 84818289 R53.1 PT OT Eval and treatmonit or fall risk and need for increased support in community Interstiti al lung disease 589307705 J84.09 see above Chronic ob structive pulmonary disease 10110425 J44.1 recent hospitaliz ation for exacerbati oncontinue prednisone tapermonit or respirator y status and need to extendO2 at baseline Congestive heart failure 32901359 I50.23 treated with IV lasix in hospitalno w on lasix 20 mg qdmonitor respirator y and fluid status Atrial fibrillation 4943 6004 I48.0 eliquis 5 mg bidmonitor for rate controlon diltiazem Retention of urine 02427 4002 R33.8 [address] voiding trial in hospitalmo nitor for retention Essential hypertension 67223506 I10 diltiazem 300 mg qdmonitor bp and need to titrate Primary insomnia 8053237 F51.01 melatonin 3 mg qhsmonitor for effect [id number] YANI BETANCUR TJ [address] [place] [address] 11/08/2024 10:51:09 11/12/2024 15:47:12 Stercoral colitis 681331563 K52.89 stableimpr farrukh with enemanow on bowel protocolmo nitor for effect Acute infe ctive cystitis 784582927 N30.00 stableUTI treated with course of cefepimemo nitor for recurrent infection Acute hyperkalemia 35893 00 E87.5 KCl 20 meq qdayrepeat bmpmonitor lytes Asthenia 17561750 R53.1 continue PT/OTmonit or fall risk and need for increased support in community Chronic ob structive pulmonary disease 69975463 J44.1 stablecont spiriva 18 mcg qdcont duoneb tx prncont prednisone taperO2 at baseline Congestive heart failure 80340167 I50.23 euvolemicc ont lasix 20 mg dailykcl 20 meq qdmonitor respirator y and fluid status Atrial fibrillation 4943 6004 I48.0 stablecont eliquis 5 mg bidmonitor for rate controlon diltiazem 300 mg Essential hypertension 72167213 I10 stabledilt iazem 300 mg qdmonitor bp and need to titrate Primary insomnia 9404228 F51.01 melatonin 3 mg qhsmonitor for effect Interstiti al lung disease 494667505 J84.09 cont atovaquone until 4/6cont mycophenol ate Mixed anxi ety and depressive disorder 421032897 F41.8 cont mirtazapin e, clonazepam , seroquelmo nitor mood [id number] DANIELA BUNCH, [employer] [facility] [address] [place] [address] 11/11/2024 10:09:50 11/12/2024 16:25:09 Stercoral colitis 892143938 K52.89 stableimpr farrukh with enemanow on bowel protocolmo nitor for effect Acute infe ctive cystitis 058003124 N30.00 stableUTI treated with course of cefepimemo nitor for recurrent infection Acute hyperkalemia 72105 00 E87.5 KCl 20 meq qdayrepeat bmpmonitor lytes Asthenia 02722114 R53.1 continue PT/OTmonit or fall risk and need for increased support in community Chronic ob structive pulmonary disease 63412354 J44.1 stablecont spiriva 18 mcg qdcont duoneb tx prncont prednisone taperO2 at baseline Congestive heart failure 96964163 I50.23 euvolemicc ont lasix 20 mg dailykcl 20 meq qdmonitor respirator y and fluid status Atrial fibrillation 4943 6004 I48.0 stablecont eliquis 5 mg bidmonitor for rate controlon diltiazem 300 mg Essential hypertension 97626860 I10 stabledilt iazem 300 mg qdmonitor bp and need to titrate Primary insomnia 5978568 F51.01 melatonin 3 mg qhsmonitor for effect Interstiti al lung disease 608318251 J84.09 cont atovaquone until 4/6cont mycophenol ate Mixed anxi ety and depressive disorder 889950007 F41.8 cont mirtazapin e, clonazepam , seroquelmo nitor mood Migraine without aura 56 636984 G43.009 Stable, and also is on prednisone therapy as above.Pt does not want medication for migraine at this time.Advis ed patient to try PRN tylenol.Wi ll continue monitor. Health Concerns Section Related Observation LastModified by Organization Detai ls LastModified Time None Recorded Concern Status LastModified by Organization Details LastModified Time None Recorded Advance Directives Directive Y: Payers Encounter Date Sequence Insurance Name Policy Number Policy Nair Covered Member ID Nair Member ID Guarantor Name 11/03/2024 2 [place] [id number] Mellissa Andrlise [id number] Mellissa Androtiliajczyk 11/03/2024 1 [place] [employer] Mellissa Flores Andrlise [id number] Mellissa Andrsarithazyk 11/08/2024 2 [place] [id number] Mellissa Androtiliajczcharlotte [id number] Mellissa Andrsarithazyk 11/08/2024 1 [place] Mellissa Sandra Androtiliajczcharlotte [id number] Mellissa Androtiliajczyk 11/11/2024 2 [place] [id number] Mellissa Andrlise [id number] Mellissa Androtiliajczyk 11/11/2024 1 [place] [employer] Mellissa Flores Anddiegojczyk [id number] Mellissa Anddiegojczyk Notes Date Note Type Note Provider Name and Address Organization Details Recorded Time 11/03/2024 text/html Patient is a 74 yo female admit from hospital after presenting with concern for mental status change and seizures after several recent hospitalizations for ILD and CHF exacerbations. On this admission dx with UTI and stercoral colitis. UTI treated with course of cefepime. Passed voiding trial in hospital. Of note tsh noted mildly elevated. Constipation improved with enema and bowel protocol. For ILD exacerbation continue steroid taper. Noted recurrent CHF exacerbation improved with IV lasix PMH significant forILDcopd O2 dependentchfa fib on eliquisurinary retention admit to facility for continued care and therapy Nabeel Munoz MD [address] [place] [address], [address], [place], [address], [facility] 11/03/2024 14:42:24 11/08/2024 text/html Patient is a 74 yo female seen for acute rounding visit.She is here for rehab after recent acute care stay for ILD and CHF exacerbation. stable with baseline SOB oxygen dependent, noted with congested cough for a few days, denies any othe sx. PMH significant forILDcopd O2 dependentchfa fib on eliquisurinary retention YANI BETANCUR [address] [facility], [address], [place], [address], [facility] 11/09/2024 06:56:22 11/11/2024 text/html Patient is a 74 yo [...] dependentchfa fib on eliquisurinary retention DANIELA BUNCH, SHERYL [address] [facility], [address], [place], [address], [facility] 11/11/2024 12:06:53 OBGyn Episode No OBEpisode recorded.
--- OUTSIDE RECORDS SUMMARY | 2024-11-16 06:02 | XMS_ITS | Clinical Summary ---
Author Organization [address] Address [address] [place] [address] Care Team Providers Care Hand Packer Name Role Phone Suhas Merchant MD Primary Care Provider [phone] Allergies Active Allergy Reactions Criticality Noted Date [...] cancer screening, Colonoscopy 1993 Diabetes screening 1993 Pneumococcal Vaccine (50+ ye ars) (1 of 1 - PCV) 1998 Shingles vaccine (Shingrix) (1 of 2 - Shingrix (RZV) 2 Dose Standard Series) 1998 Osteoporosis screening (bone density) 2013 RSV Immunization (1 - 1-dose 75+ series) 2023 Covid-19 vaccine series ( - 2023- season) 2024 Influenza vaccine 04/12/2025 04/29/2020 Breast cancer screening Discontinued Cervical cancer screening Discontinued Meningococcal Vaccine Aged Out No justin kanwal eligible based on patient's age to complete this topic Insurance MEDICARE [facility] MEDICARE [facility] MEDICARE BCBS Care Teams Hand Packer Relationship Specialty Start Date End Date Suhas Merchant MD PCP - General 05/06/20
--- OUTSIDE RECORDS SUMMARY | 2024-11-16 06:02 | XMS_ITS | Continuity of Care Document ---
Author Organization [facility] ter Address [address] [place] [id number]- Care Team Providers Care Environmental Services Floor Tech Name Role Phone Katrin MACK, Britta Richmond Primary Care Physic yamila Encounter [facility] Date(s): 10/10/24 - 11/15/[address] [address]- Attending Physician: Arvin Augustine MD Admitting Physician: Arvin Augustine MD Referring Physician: Tameka Steinberg DO Encounter Type: Pre-Outpt Allergies, Adverse Reactions, Alerts Substance Criticality Severity Reaction Reaction Severity Status amoxicillin brain fog Active sulfADIAZINE diarrhea Active penicillins diarrhea Active Cipro joint, diarrehe a Avelox Active Levaquin diarrehea joint pain Active Avelox not sure Active Lexapro not sure Active Cymbalta confusion Active Entocort not sure Active Immunizations Given and Recorded Vaccine Date Status Refusal Reason influenza virus vaccine, inactivated 10/03/24 Give n influenza virus vaccine, inactivated 06/13/22 Elroy rded influenza virus vaccine, inactivated 04/16/21 Elroy rded influenza virus vaccine, inactivated 1 04/29/20 Re corded influenza virus vaccine, inactivated 04/16/17 Elroy rded influenza virus vaccine, inactivated 04/08/15 Elroy rded influenza virus vaccine, inactivated 04/05/15 Elroy rded influenza virus vaccine, inactivated 06/05/12 Elroy rded influenza virus vaccine, inactivated 05/24/11 Elroy rded [id number] 12y+ bivalent booster vax 06/28/22 Recorded SARS-CoV-2 mRNA ([id number]) vax 12/02/21 Recorded SARS-CoV-2 (COVID-19) mRNA BNT-162b2 vac 05/30/21 Recorded SARS-CoV-2 (COVID-19) mRNA BNT-162b2 vac 11/11/20 Recorded Influenza Virus Vaccine (oldterm) 03/30/19 Recorde d Influenza Virus Vaccine (oldterm) 03/25/19 Recorde d Influenza Virus Vaccine (oldterm) 05/08/18 Recorde d Influenza Virus Vaccine (oldterm) 05/03/16 Recorde d zoster vaccine, inactivated 03/30/19 Recorded zoster vaccine, inactivated 01/07/19 Recorded tetanus/diphtheria/pertussis, acel(Tdap) 02/27/19 Recorded tetanus/diphtheria/pertussis, acel(Tdap) 02/24/15 Recorded pneumococcal 23-valent vaccine 09/05/16 Recorded pneumococcal 23-valent vaccine 12/14/11 Given pneumococcal 23-valent vaccine 12/14/11 Recorded pneumococcal 23-valent vaccine 07/19/08 Recorded pneumococcal 13-valent vaccine 03/03/15 Recorded Zoster Vaccine Live 11/18/12 Recorded tetanus-diphtheria toxoids (Td) 02/27/11 Recorded 1Result Comment: [facility] Medications (Vitamin D3) Cholecalciferol 400 SNF units/mL oral syringe 1 mL 5 mL = 2,000 units, By Mouth, Daily, 0 Refills, Maintenance, 10/19/24 2:49:00 PM EDT, Oral Syringe, Partial fill upon patient request if the prescription is for a schedule II opioid drug. Start Date: 10/19/24 Status: Ordered Repeat number: 1 albuterol-ipratropium 3 mg-0.5 mg/3 ml inhalation solution BAND Nebulizer, Every 4 hours, PRN Wheezing/Shortness of Breath, 0 Refills, Maintenance, 10/19/24 2:57:00 PM EDT, Inhalation Solution, Partial fill upon patient request if the prescription is for a schedule II opioid drug. Start Date: 10/19/24 Status: Ordered Repeat number: 1 atovaquone 750 mg/5 mL oral suspension 10 mL = 1,500 mg, By Mouth, Every 24 hours, 0 Refills, Maintenance, 10/19/24 2:49:00 PM EDT, Suspension, Partial fill upon patient request if the prescription is for a schedule II opioid drug. Start Date: 10/19/24 Status: Ordered Repeat number: 1 AutoCPAP 12-20 AutoCPAP 12-20, See Instructions, # 1 each, Refills 0, Tot. Refills 0, Maintenance, use overnight and naps from [facility], 05/09/23 11:57:00 AM EDT, Compound Start Date: 05/09/23 Status: Ordered Quantity: 1.0 Unit: each Repeat number: 1 calcium carbonate 650 mg oral tablet 650 mg, By Mouth, 2 times a day, Refills 0, Maintenance, 10/19/24 2:49:00 PM EDT, Partial fill upon patient request if the prescription is for a schedule II opioid drug. Start Date: 10/19/24 Status: Ordered Repeat number: 1 clonazePAM 0.5 mg oral tablet = 0.25 mg, By Mouth, 2 times a day, PRN Anxiety, 0 Refills, Maintenance, 10/19/24 2:51:00 PM EDT, Tablet, Partial fill upon patient request if the prescription is for a schedule II opioid drug. Start Date: 10/19/24 Status: Ordered Repeat number: 1 DilTIAZem (Eqv-Cardizem CD) 300 mg/24 hours oral capsule, extended release 1 capsule = 300 mg, By Mouth, Daily, # 60 capsule, 0 Refills, Maintenance, 03/31/24 4:42:00 PM EDT, [id number], Partial fill upon patient request if the prescription is for a scheduleII opioid drug., 152.5, cm, 01/09/24 13:29:00 EDT, Height, 72.8, kg, 03/01/23 10:18:00 EDT, Dry Weight Start Date: 03/31/24 Status: Ordered Quantity: 60.0 Unit: capsule Repeat number: 1 Eliquis 5 mg oral tablet 1 tablet = 5 mg, By Mouth, 2 times a day, # 60 tablet, 5 Refills, Maintenance, 09/21/24 2:26:00 PM EST, Tablet, [facility] 3, Partial fill upon patient request if the prescription is for aschedule II opioid drug., 152.4, cm, 09/21/24 13:24:00 EST, Height, 65.4, kg, 09/06/24 14:05:00 EST, Dry Weight Start Date: 09/21/24 Status: Ordered Quantity: 60.0 Unit: tablet Repeat number: 6 fluticasone-vilanterol Inhalation, Daily, 0 Refills, Maintenance, 10/19/24 2:49:00 PM EDT, Inhaler, Partial fill upon patient request if the prescription is for a schedule II opioid drug. Start Date: 10/19/24 Status: Ordered Repeat number: 1 gabapentin 300 mg oral capsule 1, capsule, By Mouth, Daily at bedtime, NEW DOSE, # 90 capsule, Refills 1, Maintenance, 07/16/24 5:44:00 PM EST, Route to Pharmacy Electronically, [facility], 152.5, cm, 04/23/24 12:08:00 EDT, Height, 72.8, kg, 03/01/23 10:18:00 EDT, Dry Weight Start Date: 07/16/24 Status: Ordered Quantity: 90.0 Unit: capsule Repeat number: 1 Klor-Con M20 20 mEq oral tablet, extended release 2 tablet = 40 mEq, By Mouth, Daily, FULL GLASS OF WATER OR WITH FOOD., # 30 tablet, 3 Refills, Maintenance, 10/19/24 2:57:00 PM EDT, [facility], 155, cm, 10/18/24 15:23:00 EDT, Height, 58.3, kg, 10/02/24 1:57:00 EST, Dry Weight Start Date: 10/19/24 Status: Ordered Quantity: 30.0 Unit: tablet Repeat number: 4 latanoprost 0.005% ophthalmic solution 1 drops, Eyes, Both, Daily at bedtime, # 3 mL, 0 Refills, Maintenance, 09/23/19 7:30:00 AM EST, Ophth Solution Start Date: 09/23/19 Status: Ordered Quantity: 3.0 Unit: mL Repeat number: 1 melatonin 3 mg oral tablet = 6 mg, By Mouth, Daily at bedtime, 0 Refills, Maintenance, 10/19/24 2:49:00 PM EDT, Tablet, Partialfill upon patient request if the prescription is for a schedule II opioid drug. Start Date: 10/19/24 Status: Ordered Repeat number: 1 montelukast 10 mg oral tablet 1, tablet, By Mouth, Daily in PM, # 90 tablet, Refills 3, Tot. Refills 3, Maintenance, 06/01/24 1:03:00 PM EDT, Route to Pharmacy Electronically, [facility] #[id number], 152.5, cm, 04/23/24 12:08:00 EDT, Height, 72.8, kg, 03/01/23 10:18:00 EDT, Dry Weight Start Date: 06/01/24 Status: Ordered Quantity: 90.0 Unit: tablet Repeat number: 4 Multivit Therapeutic/Minerals Tablet 1 tablet, By Mouth, Daily, 0 Refills, Maintenance, 10/19/24 2:49:00 PM EDT, Tablet, Partial fill upon patient request if the prescription is for a schedule II opioid drug. Start Date: 10/19/24 Status: Ordered Repeat number: 1 mycophenolate mofetil 250 mg oral capsule = 1 Gm, By Mouth, 2 times a day, 0 Refills, Maintenance, 10/19/24 2:49:00 PM EDT, Capsule, Partial fill upon patient request if the prescription is for a schedule II opioid drug. Start Date: 10/19/24 Status: Ordered Repeat number: 1 pravastatin 40 mg oral tablet 1 tablet, By Mouth, Daily, # 90 tablet, 1 Refills, Maintenance, 10/09/24 12:15:00 PM EST, [facility], 155, cm, 10/02/24 1:57:00 EST, Height, 58.3, kg, 10/02/24 1:57:00 EST, Dry Weight Start Date: 10/09/24 Status: Ordered Quantity: 90.0 Unit: tablet Repeat number: 2 predniSONE 10 mg oral tablet = 10 mg, By Mouth, Every 24 hours, 0 Refills, Maintenance, 10/19/24 2:50:00 PM EDT, Tablet, Partial fill upon patient request if the prescription is for a schedule II opioid drug. Start Date: 10/19/24 Status: Ordered Repeat number: 1 predniSONE 20 mg oral tablet = 20 mg, By Mouth, Every 24 hours, 0 Refills, Maintenance, 10/19/24 2:49:00 PM EDT, Tablet, Partial fill upon patient request if the prescription is for a schedule II opioid drug. Start Date: 10/19/24 Status: Ordered Repeat number: 1 Protonix 40 mg oral delayed release tablet = 40 mg, By Mouth, 2 times a day, 0 Refills, Maintenance, 10/19/24 2:49:00 PM EDT, EC Tablet Start Date: 10/19/24 Status: Ordered Repeat number: 1 sertraline 25 mg oral tablet = 25 mg, By Mouth, Daily, 0 Refills, Maintenance, 10/19/24 2:50:00 PM EDT, Tablet, Partial fill uponpatient request if the prescription is for a schedule II opioid drug. Start Date: 10/19/24 Status: Ordered Repeat number: 1 Tiotropium Inhalation, Daily, 0 Refills, Maintenance, 10/19/24 2:51:00 PM EDT, Inhaler, Partial fill upon patient request if the prescription is for a schedule II opioid drug. Start Date: 10/19/24 Status: Ordered Repeat number: 1 Ventolin HFA 108 mcg/inh inhalation aerosol with adapter 2 puffs, Inhalation, 4 times a day, PRN for wheezing, j44.9, # 3 each, 3 Refills, Maintenance, 01/09/24 2:19:00 PM EDT, Aerosol, [facility], Partial fill upon patient request ifthe prescription is for a schedule II opioid drug., 152.5, cm, 01/09/24 13:29:00 EDT, Height, 72.8,kg, 03/01/23 10:18:00 EDT, Dry Weight Start Date: 01/09/24 Stop Date: 01/03/25 Status: Ordered Quantity: 3.0 Unit: each Repeat number: 4 Problem List Condition Confirmation Course Effective Dates Status H ealth Status Informant Diastolic CHF Confirmed Active Alcohol dependence Confirmed Active Anemia Confirmed Active COPD with asthma Confirmed Active Atrial Fibrillation and Flutter Confirmed 10/02/12 Active Benign Essential Hypertension Confirmed 10/02/12 Active Chronic insomnia Confirmed Active Chronic low back pain Confirmed Active Transaminitis Confirmed Active Generalized anxiety disorder with panic attacks Confirmed Active Hyponatremia Confirmed Active Elevated CK Confirmed Active Internal carotid artery stenosis Confirmed Active Pancreatic mass Confirmed Active Migraine with aura Confirmed Active Obstructive sleep apnea 1 Confirmed Active Orthostatic hypotension Confirmed Active Pneumonia Confirmed Active Duodenal stricture Confirmed Active 1severe Social History Social History Type Response Smoking Status Former smoker; Tobac co user in household: No; Type: Cigarettes; Other: Pt was previous heavy smoker, pt quit 23 years ago.; entered on: 09/17/14 Sex Sex Representation Female (finding) Patient Care team information Care Team Personnel Name: Kulwant Meier RN Position: [facility] RN Member Role: Primary Care Nurse Name: Robbi Aburto RN Position: [facility] RN Member Role: Primary Care Nurse Name: Yue Arias RN Position: [facility] RN Member Role: Primary Care Nurse Name: Tyler Rodriguez RN Position: [facility] RN Member Role: Primary Care Nurse Name: Tracey Townsend Position: [facility] RN Supv Member Role: Primary Care Nurse Name: Ashley Jaramillo RN Position: [facility] RN Member Role: Primary Care Nurse Name: Selina Kessler RN Position: [facility] RN Member Role: Primary Care Nurse Name: Zuleyka Payne RN Position: [facility] RN Member Role: Primary Care Nurse Name: Lily Mckeon RN Position: [facility] RN Member Role: Primary Care Nurse Name: René Doyle RN Position: [facility] RN Member Role: Primary Care Nurse Name: Suly Landaverde RN Position: [facility] Book Sewer Member Role: Primary Care Nurse Name: Eulalia Cline RN Position: [facility] AMB Nurse Member Role: Primary Care Nurse Name: Conchita Barth RN Position: [facility] RN Member Role: Primary Care Nurse Name: Yung Isaacs LPN Position: [facility] RN Member Role: Primary Care Nurse Name: Tavia Ennis RN Position: [facility] RN Member Role: Primary Care Nurse Name: Katrin MACK, Britta Richmond Position: [facility] Physician - Primary Care Member Role: PCP Address: [address] [place] [address]- [place] Tele[employer]: Name: Dianna Beach RN Position: [facility] AMB Nurse Member Role: Primary Care Nurse Name: Clifton Berrios RN Position: [facility] RN Member Role: Primary Care Nurse Name: Gabriella Almonte NP Position: [facility] PCO Associate Professional Member Role: Primary Care Nurse Address: [address] [place] [address]- [place] Tele[employer]: Name: Mirian Plaza RN Position: [facility] RN Member Role: Primary Care Nurse Name: Deanna Vincent RN Position: [facility] RN Member Role: Primary Care Nurse Name: Tyrell Abraham DO Position: [facility] Renal MD Member Role: Lifetime Consulting Physician Address: [address] [place], [place] [address] [place] [address]- Telecom: Name: Vineet Coelho RN Position: [facility] RN Member Role: Primary Care Nurse Name: Francois Aldana RN Position: [facility] RN Member Role: Primary Care Nurse Name: Elizabeth Valencia RN Position: [facility] RN Member Role: Primary Care Nurse Name: Sally Jalloh RN Position: [facility] RN Member Role: Primary Care Nurse Name: Rubi Begum RN Position: [facility] RN Member Role: Primary Care Nurse Name: Hannah Riddle RN Position: [facility] ED RN W/OE and Tasks Member Role: Primary Care Nurse Name: Rylee Cary RN Position: [facility] RN Member Role: Primary Care Nurse Name: Lori Patel RN Position: [facility] RN Member Role: Primary Care Nurse Name: Renetta Tyler RN Position: [facility] RN Member Role: Primary Care Nurse Name: Nael Peck LPN Position: [facility] RN Member Role: Primary Care Nurse Name: Pedro Dela Cruz RN Position: [facility] RN Member Role: Primary Care Nurse Name: Yessi Alcantar RN Position: [facility] RN Supjuan Member Role: Primary Care Nurse Name: Jenny Jimenez RN Position: [facility] RN Member Role: Primary Care Nurse Name: Deborah Rossi RN Position: [facility] RN Member Role: Primary Care Nurse Name: Yuliya Dodson RN Position: [facility] RN Member Role: Primary Care Nurse Name: Issac Jensen RN Position: [facility] RN Member Role: Primary Care Nurse Name: Nahomy Chang RN Position: [facility] RN Member Role: Primary Care Nurse Name: Tari Jones RN Position: [facility] AMB Nurse Member Role: Primary Care Nurse Name: Fe Schmidt RN Position: [facility] Hospital Book Sewer Member Role: Primary Care Nurse Name: Gaurav Ross RN Position: [facility] RN Member Role: Primary Care Nurse Name: Nabila Huang RN Position: [facility] RN Member Role: Primary Care Nurse Name: Edelmira Navarro LPN Position: [facility] RN Member Role: Primary Care Nurse Care Team Related Persons Name: BEHZADXIAORENARDVALENCIA Name: TISH BOOTH Insurance Providers Guarantor name: VANESSA RODRIGUEZ Health Plan Information #: 1 Payer: MEDICARE PART B OUTPT Member Number: [id number] Policy Number: NA Group Number: NA Health Plan Information #: 2 Payer: MEDEX Member Number: [id number] Policy Number: NA Group Number: NA
[2024-11-16 06:47] LABS: Basophils Absolute Auto 0.1 X10*3/uL (0.0-0.2); Basophils Percent Auto 0.6 % (0-2); Eosinophils Absolute Auto 0.2 X10*3/uL (0.0-0.4); Eosinophils Percent Auto 1.2 % (0-4); Hemoglobin 8.3 g/dl (12.0-16.0); Imm Gran Abs Auto 0.65 X10*3/uL (0.00-0.03); Imm Gran Pct Auto 4.2 % (0.0-0.4); Lymphocytes Absolute Auto 3.2 X10*3/uL (1.2-4.9); Lymphocytes Percent Auto 20.6 % (20-40); Mean Corpuscular HGB Conc 30.7 g/dl (31.0-35.0); Mean Corpuscular Hemoglobin 25.2 pg (27.0-33.0); Mean Corpuscular Volume 82.1 fL (80.0-98.0); Mean Platelet Volume 8.9 fL (9.4-12.3); Monocytes Absolute Auto 1.2 X10*3/uL (0.1-1.2); Monocytes Percent Auto 7.8 % (2-11); Neutrophils Absolute Auto 10.2 x10*3/uL (2.0-8.3); Neutrophils Percent Auto 65.6 % (45-73); Platelet Count 479 X10*3/uL (160-400); Red Blood Count 3.29 X10*6/uL (4.20-5.50); Red Cell Distribution Width 19.9 % (11.0-16.0); White Blood Count 15.6 X10*3/uL (4.8-10.8)
[2024-11-16 06:53] LABS: Anion Gap 15 (12-20); Blood Urea Nitrogen 9 mg/dL (9-16); Calcium 8.8 mg/dL (8.4-10.2); Carbon Dioxide 26 mmol/L (22-29); Chloride 98 mmol/L (96-108); Estimated Glomerular Filt Rate > 60; Glucose Random 72 mg/dL (60-115); Potassium 3.6 mmol/L (3.3-5.1); Sodium 135 mmol/L (135-145)
== END 2024-11-16 05:50 | disposition home or self-care (01) ==
LOC: HO.MMNH2L 05:49
PROVIDERS: Visit Provider Student in an Organized Health Care Education/Training Program
DX: J84.9 Interstitial pulmonary disease, unspecified (principal)
CPT/HCPCS: 36415; 80048; 85025

== ENCOUNTER 2024-11-23 05:46 | Outpatient (REF) | payer MEDICARE, SELFPAY ==
[2024-11-23 05:37] LABS: MANUAL DIFF FLAG NO
--- OUTSIDE RECORDS SUMMARY | 2024-11-23 06:00 | XMS_ITS | Clinical Summary ---
Author Organization [facility], Address [address] [place] [address] [place] [address] Phone Care Team Providers Care Nickel Operator Name Role Phone Unavailable Primary Care Provider [...] 03/25/2019, 05/08/2018, Additional history exists Pneumococcal Vaccine: 50+ Years Completed 09/05/2016, 03/03/2015, 12/14/2011, Additional history exists Pneumococcal Vaccine: Peds (0 to 5 Years) and At-Risk Patients (6 to 49 Years) Discontinued 09/05/2016, 03/03/2015, 12/14/2011, Additional history exists Hepatitis B Vaccine Aged Out No longe r eligible based on patient's age to complete this topic Insurance Medicare [facility]
--- OUTSIDE RECORDS SUMMARY | 2024-11-23 06:00 | XMS_ITS | Data Portability ---
Author Organization [facility], Main Office Address [address] [facility] [address] [place] [address] Care Team Providers Care Freight Handler Name Role Phone GILMAR COOPER Primary Care Provider MARAL SPENCER 2ND FLOOR OTHER [phone] Assessment Encounter Date Assessment Date Assessment LastModified by Organization Details LastModified Time 11/08/2024 11/08/2024 Labs 11/02: Na 143- K 3.0-bun 11-cr 0.5-wbc 10.3-hgb 8.9-hct 28.9-plt 360 [email or web address] Not available 11/09/2024 06:45:39 11/11/2024 11/11/2024 Labs 11/02: Na 143- K 3.0-bun 11-cr 0.5-wbc 10.3-hgb 8.9-hct 28.9-plt 360 Not available 11/11/2024 11:34:03 11/18/2024 11/18/2024 Labs 11/02: Na 143- K 3.0-bun 11-cr 0.5-wbc 10.3-hgb 8.9-hct 28.9-plt 360 4: Na 135, k 3.6, bun 15, cr 0.57, Wbc 15.6, hgb 8.3, Hct 27, plt 479. Not available 11/18/2024 10:33:15 Plan of Treatment Reminders Order Date Submit [...] Organization Details Recorded Time Interstitial lung disease 992497810 Active 2024 Nabeel Munoz MD [address], [address], [place], [address], [facility] 5 14:26:55 Chronic obstructive pulmonary disease 58846350 Active 2024 Nabeel Munoz MD [address], [address], [place], [address], [facility] 5 14:27:01 Congestive heart failure 89160309 Active 2024 Nabeel Munoz MD [address], [address], [place], [address], [facility] 5 14:27:11 Atrial fibrillation 62998908 Active 2024 Nabeel Munoz MD [address], [address], [place], [address], [facility] 5 14:27:33 Retention of urine 148476123 Active 2024 Nabeel Munoz MD [address], [address], [place], [address], [facility] 5 14:27:39 Essential hypertension 89438598 Active 2024 Nabeel Munoz MD [address], [address], [place], [address], [facility] 5 14:31:17 Mixed anxiety and depressive disorder 633491190 Active 2024 YANI BETANCUR [address], [address], [place], [address], [facility] 5 06:37:54 Problem Notes None recorded. Medical Equipment None Reported. Allergies Allergen ID Allergen Name Allergen Category Reaction Reaction Severity Criticality Documentation Date Start Date Code Code System Note Provider Name and Address Organization Details Recorded Time 49129 ampicilli n medicatio n Not available Not available Not available 11/03/2024 733 RxNorm Not Available Not Available Not Available 53459 budesonid e medicatio n Not available Not available Not available 11/03/2024 97236 RxNorm Not Available Not Available Not Available 65351 duloxetin e medicatio n Not available Not available Not available 11/03/2024 68228 RxNorm Not Available Not Available Not Available 76328 escitalop jarrod Not available Not available Not available Not available 11/03/2024 28837 8 RxNorm Not Available Not Available Not Available 70566 Levaquin medicatio n Not available Not available Not available 11/03/2024 23527 2 RxNorm Not Available Not Available Not Available 28475 Lovenox medicatio n Not available Not available Not available 11/03/2024 21622 6 RxNorm Not Available Not Available Not Available 36724 Substance with sulfonami de structure and antibacte rial mechanism of action (substanc e) medicatio n Not available Not available Not available 11/03/2024 63807 8003 SNOMED Not Available Not Available Not Available Medications Not known to be on any medication Vitals Date Recorded Body weight Heart rate Respiratory rate Systolic blood pressure Diastolic blood pressure Provider Name and Address Organization Details Last Updated DateTime 11/03/2024 22750.2 3 g 90 /min 18 /min 110 mm[Hg] 50 mm[Hg] Nabeel Munoz MD [address] [facility], [address], [place], [address], [facility] 5 14:19:19 Date Recorded Heart rate Respiratory rate Body temperature Oxygen saturation Oxygen saturation in Arterial blood by Pulse oximetry Systolic blood pressure Diastolic blood pressure Provider Name and Address Organization Details Last Updated DateTime 5 77 /min 20 /min 97.9 [degF] 91 % 91 % 98 mm[Hg] 60 mm[Hg] YANI BETANCUR [address] [facility], [address], [place], [address], [facility] 5 00:54:03 Date Recorded Body weight Heart rate Respiratory rate Body temperature Oxygen saturation Oxygen saturation in Arterial blood by Pulse oximetry Systolic blood pressure Diastolic blood pressure Provider Name and Address Organization Details Last Updated DateTime 5 30836.6 g 76 /min 18 /min 97.8 [degF] 94 % 94 % 121 mm[Hg] 68 mm[Hg] DANIELA BUNCH CNP [address] [facility], [address], [place], [address], [facility] 5 11:33:24 Social History Question Answer Notes LastModified by Organizat ion Details LastModified Time Tobacco Smoking Status Former Smoker quit around 1989 Nabeel Munoz MD [address] [facility], [address], [place], [address], [facility] 11/03/2024 14:39:28 Do You Have An Advance [...] (RSV) MAB, unspecified 3 completed Mehrdad Giraldo null, [facility] 11/04/2024 09:33:24 Td(adult) unspecified formulation 1 completed Mehrdad Casillas-Baires null, [facility] 11/04/2024 09:33:36 Td(adult) unspecified formulation 5 completed Mehrdad Giraldo null, [facility] 11/04/2024 09:33:41 Td(adult) unspecified formulation 9 completed Mehrdad Giraldo null, [facility] 11/04/2024 09:33:46 Pneumococcal conjugate PCV 13 5 completed Mehrdad Casillas-Dequan null, [facility] 11/04/2024 09:33:59 pneumococcal polysaccharide PPV23 7 completed Mehrdad Giraldo null, [facility] 11/04/2024 09:34:17 influenza, unspecified formulation 1 completed Mehrdad Casillas-Dequan null, [facility] 11/04/2024 09:34:31 influenza, unspecified formulation 2 completed Mehrdad Jacks-Baires null, [facility] 11/04/2024 09:34:35 influenza, unspecified formulation 3 completed Mehrdad Jacks-Baires null, [facility] 11/04/2024 09:34:39 influenza, unspecified formulation 5 completed Mehrdad Jacks-Baires null, [facility] 11/04/2024 09:34:45 SARS-COV-2 (COVID-19) vaccine, UNSPECIFIED 1 completed Mehrdad Jacks-Baires null, [facility] 11/04/2024 09:34:56 SARS-COV-2 (COVID-19) vaccine, UNSPECIFIED 1 completed Mehrdad Jacks-Baires null, [facility] 11/04/2024 09:35:00 SARS-COV-2 (COVID-19) vaccine, UNSPECIFIED 1 completed Mehrdad Jacks-Baires null, [facility] 11/04/2024 09:35:05 SARS-COV-2 (COVID-19) vaccine, UNSPECIFIED 2 completed Mehrdad Jacks-Baires null, [facility] 11/04/2024 09:35:09 SARS-COV-2 (COVID-19) vaccine, UNSPECIFIED 2 completed Mehrdad Jacks-Baires null, [facility] 11/04/2024 09:35:14 SARS-COV-2 (COVID-19) vaccine, UNSPECIFIED 3 completed Mehrdad Jacks-Baires null, [facility] 11/04/2024 09:35:19 SARS-COV-2 (COVID-19) vaccine, UNSPECIFIED 3 completed Mehrdad Jacks-Baires null, [facility] 11/04/2024 09:35:24 zoster, unspecified formulation 3 completed Mehrdad Jacks-Baires null, [facility] 11/04/2024 09:35:38 zoster, unspecified formulation 9 completed Mehrdad Jacks-Baires null, [facility] 11/04/2024 09:35:42 zoster, unspecified formulation 9 completed Mehrdad Jacks-Baires null, [facility] 11/04/2024 09:35:48 Past Encounters Encounter ID Performer Location Encounter Start Date Encounter Closed Date Diagnosis/Indication Diagnosis SNOMED-CT Code Diagnosis ICD10 Code Diagnosis Note [id number] MD MARAL [place] [address] [place] [address] [place] [id number] 11/03/2024 14:18:47 11/05/2024 11:41:09 Stercoral colitis 222891519 K52.89 improved with enemanow on bowel protocolmo nitor for effect Acute infe ctive cystitis 025612157 N30.00 UTI treated with course of cefepimemo nitor for recurrent infection Acute hyperkalemia 98433 00 E87.5 KCl 20 meq qdayrepeat bmpmonitor lytes Asthenia 15054287 R53.1 PT OT Eval and treatmonit or fall risk and need for increased support in community Interstiti al lung disease 383468268 J84.09 see above Chronic ob structive pulmonary disease 38997720 J44.1 recent hospitaliz ation for exacerbati oncontinue prednisone tapermonit or respirator y status and need to extendO2 at baseline Congestive heart failure 29435869 I50.23 treated with IV lasix in hospitalno w on lasix 20 mg qdmonitor respirator y and fluid status Atrial fibrillation 4943 6004 I48.0 eliquis 5 mg bidmonitor for rate controlon diltiazem Retention of urine 52122 4002 R33.8 londono priorpasse d voiding trial in hospitalmo nitor for retention Essential hypertension 33037599 I10 diltiazem 300 mg qdmonitor bp and need to titrate Primary insomnia 7163321 F51.01 melatonin 3 mg qhsmonitor for effect [id number] YANI BETANCUR [address] [place] [address] [place] [address] 11/08/2024 10:51:09 11/12/2024 15:47:12 Stercoral colitis 855780570 K52.89 stableimpr farrukh with enemanow on bowel protocolmo nitor for effect Acute infe ctive cystitis 292355898 N30.00 stableUTI treated with course of cefepimemo nitor for recurrent infection Acute hyperkalemia 92053 00 E87.5 KCl 20 meq qdayrepeat bmpmonitor lytes Asthenia 55738751 R53.1 continue PT/OTmonit or fall risk and need for increased support in community Chronic ob structive pulmonary disease 69024532 J44.1 stablecont spiriva 18 mcg qdcont duoneb tx prncont prednisone taperO2 at baseline Congestive heart failure 97377802 I50.23 euvolemicc ont lasix 20 mg dailykcl 20 meq qdmonitor respirator y and fluid status Atrial fibrillation 4943 6004 I48.0 stablecont eliquis 5 mg bidmonitor for rate controlon diltiazem 300 mg Essential hypertension 58741127 I10 stabledilt iazem 300 mg qdmonitor bp and need to titrate Primary insomnia 3275158 F51.01 melatonin 3 mg qhsmonitor for effect Interstiti al lung disease 049597595 J84.09 cont atovaquone until 4/6cont mycophenol ate Mixed anxi ety and depressive disorder 990191338 F41.8 cont mirtazapin e, clonazepam , seroquelmo nitor mood [id number] DANIELA BUNCH, [address] [address] 11/11/2024 10:09:50 11/12/2024 16:25:09 Stercoral colitis 624628179 K52.89 stableimpr farrukh with enemanow on bowel protocolmo nitor for effect Acute infe ctive cystitis 881682271 N30.00 stableUTI treated with course of cefepimemo nitor for recurrent infection Acute hyperkalemia 78350 00 E87.5 KCl 20 meq qdayrepeat bmpmonitor lytes Asthenia 32961038 R53.1 continue PT/OTmonit or fall risk and need for increased support in community Chronic ob structive pulmonary disease 13756228 J44.1 stablecont spiriva 18 mcg qdcont duoneb tx prncont prednisone taperO2 at baseline Congestive heart failure 01098223 I50.23 euvolemicc ont lasix 20 mg dailykcl 20 meq qdmonitor respirator y and fluid status Atrial fibrillation 4943 6004 I48.0 stablecont eliquis 5 mg bidmonitor for rate controlon diltiazem 300 mg Essential hypertension 07875684 I10 stabledilt iazem 300 mg qdmonitor bp and need to titrate Primary insomnia 6613478 F51.01 melatonin 3 mg qhsmonitor for effect Interstiti al lung disease 623163335 J84.09 cont atovaquone until 4/6cont mycophenol ate Mixed anxi ety and depressive disorder 728136509 F41.8 cont mirtazapin e, clonazepam , seroquelmo nitor mood Migraine without aura 56 945889 G43.009 Stable, and also is on prednisone therapy as above.Pt does not want medication for migraine at this time.Advis ed patient to try PRN tylenol.Wi ll continue monitor. [id number] DANIELA BUNCH, SHERYL SPENCER [address] [place] [address] rd [place] [id number] 11/18/2024 10:18:23 11/18/2024 10:51:25 Stercoral colitis 994776677 K52.89 stableimpr farrukh with enemanow on bowel protocolmo nitor for effect Acute infe ctive cystitis 769829218 N30.00 stableUTI treated with course of cefepimemo nitor for recurrent infection Acute hyperkalemia 66314 00 E87.5 Improving, K 3.6 on 11/16.contin ue KCl 20 meq qdaycontin ue monitor labs weekly.mon itor lytes Asthenia 27917285 R53.1 continue PT/OTmonit or fall risk and need for increased support in community Chronic ob structive pulmonary disease 33491024 J44.1 stablecont spiriva 18 mcg qdcont duoneb tx prncont prednisone taper, will complete 4/O2 at baseline Congestive heart failure 89502381 I50.23 euvolemicc ont lasix 20 mg dailykcl 20 meq qdmonitor respirator y and fluid status Atrial fibrillation 4943 6004 I48.0 stablecont eliquis 5 mg bidmonitor for rate controlon diltiazem 300 mg Essential hypertension 16975132 I10 stabledilt iazem 300 mg qdmonitor bp and need to titrate Primary insomnia 3790737 F51.01 melatonin 3 mg qhsmonitor for effect Interstiti al lung disease 495301093 J84.09 cont mycophenol atemonitor respirator y status. Mixed anxi ety and depressive disorder 205360737 F41.8 cont mirtazapin e, PRN clonazepam , seroquelmo nitor mood Migraine without aura 56 464045 G43.009 Stable, and also is on prednisone [...] ID Nair Member ID Guarantor Name 11/03/2024 1 [place] [employer] Mellissa Rubio [id number] Mellissa Andenriquetayk 11/03/2024 2 [place] [id number] Mellissa Rubio [id number] Mellissa Andenriquetayk 11/08/2024 1 [place] Mellissa Rubio [id number] Mellissa Andjenae 11/08/2024 2 [place] [id number] Mellissa Andjenae [id number] Mellissa Andjenae 11/11/2024 1 [place] Mellissa Rubio [id number] Mellissa Andjenae 11/11/2024 2 [place] [id number] Mellissa Andjenae [id number] Mellissa Andjenae 11/18/2024 1 [place] Mellissa Flores Andjenae [id number] Mellissa Andjenae 11/18/2024 2 [place] [id number] Mellissa Andjenae [id number] Mellissa Andenriquetayk Notes Date Note Type Note Provider Name [...] continued care and therapy Nabeel Munoz MD [address] [facility], [address], [place], [address], [facility] 11/03/2024 14:42:24 11/08/2024 text/html Patient is a 74 yo female seen for acute rounding visit.She is here for rehab after recent acute care stay for ILD and CHF exacerbation. stable with baseline SOB oxygen dependent, noted with congested cough for a few days, denies any othe sx. PMH significant forILDcopd O2 dependentchfa fib on eliquisurinary retention YANI BETANCUR [address] [facility], [address], [place], [address], [facility] 11/09/2024 06:56:22 11/11/2024 text/html Patient is [...] O2 dependentchfa fib on eliquisurinary retention DANIELA BUNCH CNP [address] [facility], [address], [place], [address], [facility] 11/11/2024 12:06:53 11/18/2024 text/html Mellissa is 74 y/ o female patient was seen today for acute rounding visit. Patient is a 74 yo female admit [...] taper, the end date will be 11/29/24. Upon assessment today, she is stable with baseline SOB oxygen dependent, VSS, denies any othe sx. Nursing requested for clonazepam. Pt reports her roommate yelling, so she can't sleep or rest, it caused her anxiety. She uses clonazepam PRN. PMH significant for ILD, copd O2 dependent, chf, a fib on eliquis, urinary retentionadmit to facility for continued care and therapy. PMH significant forILDcopd O2 dependentchfa fib on eliquisurinary retention DANIELA BUNCH CNP [address] [facility], [address], [place], [address], [facility] 11/18/2024 10:51:24 OBGyn Episode No OBEpisode recorded.
--- OUTSIDE RECORDS SUMMARY | 2024-11-23 06:00 | XMS_ITS | Clinical Summary ---
Author Organization [employer] Address [address] [place] [address] 7 [place] [address] Care Team Providers Care Injury/Safety Hazard Assessment Name Role Phone Gabriella Elizabeth MD Unavailable [phone] Allergies Active Allergy Reactions Criticality Noted [...] age to complete this topic Insurance [place] [address] [place] [id number] [facility] Care Teams Injury/Safety Hazard Assessment Relationship Specialty Start Date End Date Gabriella Elizabeth MD [address] [place] [id number] Ophthalmology 10/18/22
--- OUTSIDE RECORDS SUMMARY | 2024-11-23 06:00 | XMS_ITS | Clinical Summary ---
Author Organization [address] Address [address] [place] [address] Care Team Providers Care Sterile Technician Name Role Phone Suhas Merchant MD Primary Care Provider [phone] Allergies Active Allergy Reactions Criticality Noted Date [...] age to complete this topic Insurance MEDICARE [facility] MEDICARE [facility] MEDICARE BCBS Care Teams Sterile Technician Relationship Specialty Start Date End Date Suhas Merchant MD PCP - General 05/06/20
--- OUTSIDE RECORDS SUMMARY | 2024-11-23 06:00 | XMS_ITS | Continuity of Care Document ---
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 [email or web address] Not available 11/18/2024 10:33:15 Plan of Treatment [...] Organization Details Recorded Time Interstitial lung disease 625598136 Active 2024 Nabeel Munoz MD [address] , [address], [place], [address], [facility] [employer] 5 14:26:55 Chronic obstructive pulmonary disease 95322482 Active 2024 Nabeel Munoz MD [address], [address], [place], [address], [facility] [employer] 5 14:27:01 Congestive heart failure 61625001 Active 2024 Nabeel Munoz MD [address], [address], [place], [address], [email or web address] 5 14:27:11 Atrial fibrillation 10610646 Active 2024 Nabeel Munoz MD [address], [address], [place], [address], [email or web address] 5 14:27:33 Retention of urine 859720842 Active 2024 Nabeel Munoz MD [address], [address], [place], [address], [email or web address] 5 14:27:39 Essential hypertension 47626872 Active 2024 Nabeel Munoz MD [address], [address], [place], [address], [email or web address] 5 14:31:17 Mixed anxiety and depressive disorder 649182637 Active 2024 YANI BETANCUR [address], [address], [place], [address], [email or web address] 5 06:37:54 Problem Notes None recorded. Medical Equipment None Reported. Allergies Allergen ID Allergen Name Allergen Category Reaction Reaction Severity Criticality Documentation Date Start Date Code Code System Note Provider Name and Address Organization Details Recorded Time 75928 ampicilli n medicatio n Not available Not available Not available 11/03/2024 733 RxNorm Not Available Not Available Not Available 16253 budesonid e medicatio n Not available Not available Not available 11/03/2024 80144 RxNorm Not Available Not Available Not Available 70522 duloxetin e medicatio n Not available Not available Not available 11/03/2024 03254 RxNorm Not Available Not Available Not Available 68781 escitalop jarrod Not available Not available Not available Not available 11/03/2024 95908 8 RxNorm Not Available Not Available Not Available 42911 Levaquin medicatio n Not available Not available Not available 11/03/2024 67185 2 RxNorm Not Available Not Available Not Available 64362 Lovenox medicatio n Not available Not available Not available 11/03/2024 11851 6 RxNorm Not Available Not Available Not Available 61582 Substance with sulfonami de structure and antibacte rial mechanism of action (substanc e) medicatio n Not available Not available Not available 11/03/2024 58074 8003 SNOMED Not Available Not Available Not Available Medications Not known to be on any medication Vitals None Recorded Social History Question Answer Notes LastModified by Organizat ion Details LastModified Time Tobacco Smoking Status Former Smoker quit around 1989 Nabeel Munoz MD [address] [facility], [address], [place], [address], [facility] 11/03/2024 14:39:28 Do You Have An Advance [...] (RSV) MAB, unspecified 3 completed Mehrdad Giraldo [facility] 11/04/2024 09:33:24 Td(adult) unspecified formulation 1 completed Mehrdad Giraldo [facility] 11/04/2024 09:33:36 Td(adult) unspecified formulation 5 completed Mehrdad Giraldo [facility] 11/04/2024 09:33:41 Td(adult) unspecified formulation 9 completed Mehrdad Giraldo [facility] 11/04/2024 09:33:46 Pneumococcal conjugate PCV 13 5 completed Mehrdad Giraldo [facility] 11/04/2024 09:33:59 pneumococcal polysaccharide PPV23 7 completed Mehrdad Giraldo [facility] 11/04/2024 09:34:17 influenza, unspecified formulation 1 completed Mehrdad Jacks-Baires null, [facility] 11/04/2024 09:34:31 influenza, unspecified formulation 2 completed Mehrdad Jacks-Baires null, [facility] 11/04/2024 09:34:35 influenza, unspecified formulation 3 completed Mehrdad Jacks-Baires null, [facility] 11/04/2024 09:34:39 influenza, unspecified formulation 5 completed Mehrdad Jacks-Baires null, [facility] 11/04/2024 09:34:45 SARS-COV-2 (COVID-19) vaccine, UNSPECIFIED 1 completed Mehrdad Jacks-Baires null, [facility] 11/04/2024 09:34:56 SARS-COV-2 (COVID-19) vaccine, UNSPECIFIED 1 completed Mehrdad Jacks-Baires null, [facility] 11/04/2024 09:35:00 SARS-COV-2 (COVID-19) vaccine, UNSPECIFIED 1 completed Mehrdad Jacks-Baires null, [facility] 11/04/2024 09:35:05 SARS-COV-2 (COVID-19) vaccine, UNSPECIFIED 2 completed Mehrdad Jacks-Baires null, [facility] 11/04/2024 09:35:09 SARS-COV-2 (COVID-19) vaccine, UNSPECIFIED 2 completed Mehrdad Jacks-Baires null, [facility] 11/04/2024 09:35:14 SARS-COV-2 (COVID-19) vaccine, UNSPECIFIED 3 completed Mehrdad Jacks-Baires null, [facility] 11/04/2024 09:35:19 SARS-COV-2 (COVID-19) vaccine, UNSPECIFIED 3 completed Mehrdad Jacks-Baires null, [facility] 11/04/2024 09:35:24 zoster, unspecified formulation 3 completed Mehrdad Jacks-Baires null, [facility] 11/04/2024 09:35:38 zoster, unspecified formulation 9 completed Mehrdad Jacks-Baires null, [facility] 11/04/2024 09:35:42 zoster, unspecified formulation 9 completed Mehrdad CasillasJavier zimmer, [facility] 11/04/2024 09:35:48 Past Encounters Encounter ID Performer Location Encounter Start Date Encounter Closed Date Diagnosis/Indication Diagnosis SNOMED-CT Code Diagnosis ICD10 Code Diagnosis Note [id number] MD MARAL Conroy TJ [address] [place] [address] 11/03/2024 14:18:47 11/05/2024 11:41:09 Stercoral colitis 084532677 K52.89 improved with enemanow on bowel protocolmo nitor for effect Acute infe ctive cystitis 233202090 N30.00 UTI treated with course of cefepimemo nitor for recurrent infection Acute hyperkalemia 41732 00 E87.5 KCl 20 meq qdayrepeat bmpmonitor lytes Asthenia 30400736 R53.1 PT OT Eval and treatmonit or fall risk and need for increased support in community Interstiti al lung disease 042285909 J84.09 see above Chronic ob structive pulmonary disease 64277890 J44.1 recent hospitaliz ation for exacerbati oncontinue prednisone tapermonit or respirator y status and need to extendO2 at baseline Congestive heart failure 28460480 I50.23 treated with IV lasix in hospitalno w on lasix 20 mg qdmonitor respirator y and fluid status Atrial fibrillation 4943 6004 I48.0 eliquis 5 mg bidmonitor for rate controlon diltiazem Retention of urine 08585 4002 R33.8 [facility] Essential hypertension 19408935 I10 diltiazem 300 mg qdmonitor bp and need to titrate Primary insomnia 9684067 F51.01 melatonin 3 mg qhsmonitor for effect [id number] [facility] [address] [place] [address] 11/08/2024 10:51:09 11/12/2024 15:47:12 Stercoral colitis 381013142 K52.89 stableimpr farrukh with enemanow on bowel protocolmo nitor for effect Acute infe ctive cystitis 077587826 N30.00 stableUTI treated with course of cefepimemo nitor for recurrent infection Acute hyperkalemia 14080 00 E87.5 KCl 20 meq qdayrepeat bmpmonitor lytes Asthenia 02064340 R53.1 continue PT/OTmonit or fall risk and need for increased support in community Chronic ob structive pulmonary disease 72187516 J44.1 stablecont spiriva 18 mcg qdcont duoneb tx prncont prednisone taperO2 at baseline Congestive heart failure 11810643 I50.23 euvolemicc ont lasix 20 mg dailykcl 20 meq qdmonitor respirator y and fluid status Atrial fibrillation 4943 6004 I48.0 stablecont eliquis 5 mg bidmonitor for rate controlon diltiazem 300 mg Essential hypertension 54478890 I10 stabledilt iazem 300 mg qdmonitor bp and need to titrate Primary insomnia 0886313 F51.01 melatonin 3 mg qhsmonitor for effect Interstiti al lung disease 151852518 J84.09 cont atovaquone until 4/6cont mycophenol ate Mixed anxi ety and depressive disorder 843161352 F41.8 cont mirtazapin e, clonazepam , seroquelmo nitor mood [id number] DANIELA BUNCH, SHERYL [address] [address] 11/11/2024 10:09:50 11/12/2024 16:25:09 Stercoral colitis 055753828 K52.89 stableimpr farrukh with enemanow on bowel protocolmo nitor for effect Acute infe ctive cystitis 597529303 N30.00 stableUTI treated with course of cefepimemo nitor for recurrent infection Acute hyperkalemia 11196 00 E87.5 KCl 20 meq qdayrepeat bmpmonitor lytes Asthenia 07974195 R53.1 continue PT/OTmonit or fall risk and need for increased support in community Chronic ob structive pulmonary disease 04762713 J44.1 stablecont spiriva 18 mcg qdcont duoneb tx prncont prednisone taperO2 at baseline Congestive heart failure 57168358 I50.23 euvolemicc ont lasix 20 mg dailykcl 20 meq qdmonitor respirator y and fluid status Atrial fibrillation 4943 6004 I48.0 stablecont eliquis 5 mg bidmonitor for rate controlon diltiazem 300 mg Essential hypertension 88991582 I10 stabledilt iazem 300 mg qdmonitor bp and need to titrate Primary insomnia 7766247 F51.01 melatonin 3 mg qhsmonitor for effect Interstiti al lung disease 694025606 J84.09 cont atovaquone until 4/6cont mycophenol ate Mixed anxi ety and depressive disorder 290599956 F41.8 cont mirtazapin e, clonazepam , seroquelmo nitor mood Migraine without aura 56 007999 G43.009 Stable, and also is on prednisone therapy as above.Pt does not want medication for migraine at this time.Advis ed patient to try PRN tylenol.Wi ll continue monitor. [id number] SHERYL BANUELOS [address] [place] [address] [place] [address] 11/18/2024 10:18:23 11/18/2024 10:51:25 Stercoral colitis 545709509 K52.89 stableimpr farrukh with enemanow on bowel protocolmo nitor for effect Acute infe ctive cystitis 501559938 N30.00 stableUTI treated with course of cefepimemo nitor for recurrent infection Acute hyperkalemia 73678 00 E87.5 Improving, K 3.6 on 11/16.contin ue KCl 20 meq qdaycontin ue monitor labs weekly.mon itor lytes Asthenia 93783678 R53.1 continue PT/OTmonit or fall risk and need for increased support in community Chronic ob structive pulmonary disease 85000303 J44.1 stablecont spiriva 18 mcg qdcont duoneb tx prncont prednisone taper, will complete 4/O2 at baseline Congestive heart failure 16603808 I50.23 euvolemicc ont lasix 20 mg dailykcl 20 meq qdmonitor respirator y and fluid status Atrial fibrillation 4943 6004 I48.0 stablecont eliquis 5 mg bidmonitor for rate controlon diltiazem 300 mg Essential hypertension 64096255 I10 stabledilt iazem 300 mg qdmonitor bp and need to titrate Primary insomnia 6460009 F51.01 melatonin 3 mg qhsmonitor for effect Interstiti al lung disease 335080500 J84.09 cont mycophenol atemonitor respirator y status. Mixed anxi ety and depressive disorder 270514155 F41.8 cont mirtazapin e, PRN clonazepam , seroquelmo nitor mood Migraine without aura 56 080732 G43.009 Stable, and also is on prednisone [...] Member ID Nair Member ID Guarantor Name 11/18/2024 1 [place] [employer] Mellissa Rubio [id number] Mellissa Rubio 11/18/2024 2 [place] [id number] Mellissa Rubio [id number] Mellissa Rubio Notes Date Note Type Note Provider Name and Address Organization Details Recorded Time 11/18/2024 text/html Mellissa is 74 y/ o [...] dependentchfa fib on eliquisurinary retention DANIELA BUNCH, CLERK TO JUSTICE [address] [facility], [address], [place], [address], [facility] [employer] 11/18/2024 10:51:24 OBGyn Episode No OBEpisode recorded.
[2024-11-23 06:22] LABS: Basophils Absolute Auto 0.1 X10*3/uL (0.0-0.2); Basophils Percent Auto 0.7 % (0-2); Eosinophils Absolute Auto 0.3 X10*3/uL (0.0-0.4); Eosinophils Percent Auto 1.7 % (0-4); Hematocrit 25.9 % (37.0-47.0); Hemoglobin 7.6 g/dl (12.0-16.0); Imm Gran Abs Auto 0.37 X10*3/uL (0.00-0.03); Imm Gran Pct Auto 2.4 % (0.0-0.4); Lymphocytes Absolute Auto 1.7 X10*3/uL (1.2-4.9); Lymphocytes Percent Auto 11.2 % (20-40); Mean Corpuscular HGB Conc 29.3 g/dl (31.0-35.0); Mean Corpuscular Hemoglobin 24.9 pg (27.0-33.0); Mean Corpuscular Volume 84.9 fL (80.0-98.0); Mean Platelet Volume 9.4 fL (9.4-12.3); Monocytes Absolute Auto 1.3 X10*3/uL (0.1-1.2); Monocytes Percent Auto 8.6 % (2-11); NRBC Pct Auto 0.3 /100WBC (0.0-0.2); Neutrophils Absolute Auto 11.6 x10*3/uL (2.0-8.3); Neutrophils Percent Auto 75.4 % (45-73); Platelet Count 449 X10*3/uL (160-400); Red Blood Count 3.05 X10*6/uL (4.20-5.50); Red Cell Distribution Width 19.5 % (11.0-16.0); White Blood Count 15.4 X10*3/uL (4.8-10.8)
[2024-11-23 06:43] LABS: Anion Gap 14 (12-20); Blood Urea Nitrogen 7 mg/dL (9-16); Calcium 8.7 mg/dL (8.4-10.2); Carbon Dioxide 28 mmol/L (22-29); Chloride 98 mmol/L (96-108); Estimated Glomerular Filt Rate > 60; Glucose Random 107 mg/dL (60-115); Sodium 137 mmol/L (135-145)
== END 2024-11-23 05:47 | disposition home or self-care (01) ==
LOC: HO.MMNH2L 05:46
PROVIDERS: Visit Provider Student in an Organized Health Care Education/Training Program
DX: J84.9 Interstitial pulmonary disease, unspecified (principal)
CPT/HCPCS: 36415; 80048; 85025